=== PATIENT | male | born 1955 | race Caucasian/White ===

== ENCOUNTER 2018-07-19 11:08 | Observation (INO) | payer OTHER, SELFPAY ==
[2018-07-19] VITALS (9 sets, daily range): BP systolic 105–132; BP diastolic 58–78; PULSE 62–88; RESP 16–18; TEMP 36.6–36.9; O2SAT 95–99; BMI 27.0; BMI 25.4
--- NOTE | 2018-07-19 11:13 | NURSING ---
NO OLD EKGS
--- NOTE | 2018-07-19 13:26 | EKG12_ITS ---
Test Reason : NUMBNESS Blood Pressure : / mmHG Vent. Rate : 070 BPM Atrial Rate : 070 BPM P-R Int : 176 ms QRS Dur : 082 ms QT Int : 372 ms P-R-T Axes : 062 048 044 degrees QTc Int : 401 ms Sinus rhythm with marked sinus arrhythmia with occasional Premature ventricular complexes Nonspecific T wave abnormality Abnormal ECG Confirmed by SRI YEE, SMILEY ([id number]), senior editor BIANCA REDDY ([id number]) on 07/21/2018 1:58:19 PM Referred By: RUCHI Confirmed By:SMILEY FIERRO MD
--- NOTE | 2018-07-19 14:19 | RAD_ITS ---
STUDY: X-RAY CHEST REASON FOR EXAM: Male, 63 years old. Possible TIA. TECHNIQUE: Single AP portable view of the chest. COMPARISON: None. FINDINGS: The lungs are clear and expanded. Scattered calcified granulomas. There is no demonstrated pleural abnormality. Normal size heart. Normal mediastinum and doyle. Normal visualized pulmonary arteries. There is atherosclerotic tortuosity of the aortic arch and descending thoracic aorta. There are diffuse degenerative changes of the visualized thoracic spine. Normal visualized ribs, clavicles, and shoulders. There is no demonstrated abnormality of the visualized soft tissue structures of the upper abdomen. RAD/Chest 1 View IMPRESSION: No acute abnormality is seen. Electronically Signed: Kevon Kirk MD at 14:58 EST , Service support ,
--- NOTE | 2018-07-19 14:19 | CT_ITS ---
STUDY: CT BRAIN WITHOUT CONTRAST REASON FOR EXAM: Male, 63 years old. Numbness and tingling of the right arm. RADIATION DOSAGE (If Supplied By Facility): CTDIvol = ( 60.81 ) mGy, DLP = ( 1044.28 ) mGycm TECHNIQUE: Transaxial CT imaging of the brain was performed without administration of intravenous contrast material. Individualized dose optimization techniques were used for this CT. COMPARISON: None. FINDINGS: Normal soft tissue structures. Normal calvarium. Normal size ventricles and extra-axial spaces for the patient's age. Focal encephalomalacia in the vertex of the left frontal lobe measuring 1.3 cm x 1.7 cm. This may represent focal area of prior ischemic changes. Normal basal ganglia and thalami. Normal brainstem. Normal cerebellum. There is no intracranial hemorrhage. There are no findings of an acute ischemic infarction. There is a 1.2 cm polyp or retention cyst along the inferior medial portion of the right maxillary sinus. CT/Brain/Head without Contrast IMPRESSION: No acute abnormality is seen. Findings suggestive old ischemic changes in the vertex of the left frontal lobe. Electronically Signed: Kevon Kirk MD at 15:27 EST , Service support ,
[2018-07-19 14:29] LABS: Absolute Lymphocyte Count 1.85 X10^3/ul (0.83-4.51); Absolute Neutrophil Count 5.6 X10^3/uL (2.0-7.7); Basophil# 0.02 X10^3/uL; Basophil% 0.2 % (0-1); Eosinophil# 0.06 X10^3/uL; Eosinophils% 0.7 % (0-5); Hematocrit 41.7 % (40-54); Hemoglobin 14.1 g/dl (13.0-16.5); Lymphocyte # 1.85 X10^3/ul (4.0); Lymphocyte % 22.7 % (19-41); Mean Corp Hgb Conc 33.8 g/gl (32-36); Mean Corpuscular Hgb 29.1 pg (27.0-32.0); Mean Platelet Vol. 9.9 fl (6.2-12.0); Monocyte# 0.62 X10^3/uL; Monocyte% 7.6 % (0-10); Neutrophil # 5.59 X10^3/uL (2.7-7.7); Neutrophil % 68.7 % (47-70); Platelet Count 262 K/mm3 (150-450); RBC Distribution Width CV 15.5 % (11.6-14.6); RBC Distribution Width SD 49.1 fl (35.1-43.9); Red Blood Count 4.85 M/mm3 (4.6-6.2); White Blood Count 8.2 K/mm3 (4.4-11.0)
[2018-07-19 14:32] LABS: Anion Gap 6 (5-15); BUN 15 mg/dL (7-18); BUN/Creat Ratio 13.6 RATIO (10-20); Calcium,Total 9.5 mg/dL (8.5-10.1); Chloride 108 mmol/L (98-107); EST Glomerular Filtration Rate 71 mL/min (>60); Est Glom Filt Rate - Afr Amer 86 mL/min (>60); Estimated Creatinine Clearance 69.13 ml/min; Glucose 103 mg/dL (74-106); Sodium Level 140 mmol/L (136-145)
[2018-07-19 14:33] LABS: POSITIVE COUNT NO; POSITIVE DIFFERENTIAL NO; POSITIVE MORPHOLOGY NO
[2018-07-19 14:46] LABS: Bedside Glucose 118 mg/dL (70-110)
[2018-07-19 14:47] LABS: Partial Thromboplast Time 31.6 Seconds (24.1-36.2); Prothrombin Time (Protime)PT. 13.4 SECONDS (11.7-14.9)
[2018-07-19] MEDS: 0.9% Normal Saline 1,000 ML 50 ML IV (14:49)
--- NOTE | 2018-07-19 16:34 | NURSING ---
114 OBS TERELETSKY TIA
--- NOTE | 2018-07-19 17:18 | CT_ITS ---
STUDY: CTA NECK WITH CONTRAST REASON FOR EXAM: Male, 63 years old. TIA. RADIATION DOSAGE (If Supplied By Facility): CTDIvol = ( 23.81 ) mGy, DLP = ( 772.76 ) mGycm TECHNIQUE: CT angiography with multi-detector data acquisition was performed from the aortic arch to the skull base following intravenous administration of 100 ml of Isovue 370 contrast. MIP images were reconstructed from the axial data set. Post-processing of the angiographic images was performed, with multiplanar reformation and 3D reconstruction. Individualized dose optimization techniques were used for this CT. COMPARISON: None. FINDINGS: AORTIC ARCH: There is atherosclerotic calcific plaque formation of the aortic arch and great vessels arising from the aortic arch, without a hemodynamically significant stenosis. There is a bovine origin of the great vessels with a common origin of the brachiocephalic and left common carotid artery. Normal origin of the left subclavian artery. RIGHT CAROTID ARTERIES: Normal right common carotid artery (CCA). Normal right common carotid bulb. Normal origin of the right internal carotid (ICA) artery without a hemodynamically significant stenosis. There is mild tortuosity of the visualized cervical portion of the right internal carotid artery. Normal origin of the right external carotid artery (ECA). LEFT CAROTID ARTERIES: Normal left common carotid artery (CCA). Normal left common carotid bulb. Normal origin of the left internal carotid (ICA) artery without a hemodynamically significant stenosis. Normal visualized cervical portion of the left internal carotid artery. Normal origin of the left external carotid artery (ECA). VERTEBRAL ARTERIES: There is enhancement within the bilateral vertebral arteries with a small right vertebral artery, and a dominant left vertebral artery. CT/CTA Neck W/WO Contrast IMPRESSION: Normal bilateral cervical carotid and vertebral arteries. Electronically Signed: Karlo Ware DO at 19:16 EST Tel [phone], Service support ,
--- NOTE | 2018-07-19 17:18 | ECHOD_ITS ---
Reason For Study: TIA Procedure This was a 2D Doppler, Color Flow transthoracic echocardiogram. Exam performed portable in patient room. Left Ventricle Normal LV size. The estimated ejection fraction is 40 %. No regional wall motion abnormalities noted. Right Ventricle Normal RV size. Normal systolic function. Atria Normal left atrium. Normal right atrium. Patent foramen ovale. Mitral Valve Normal mitral valve. Mild (1+) eccentric mitral valve insufficiency. Tricuspid Valve Normal tricuspid valve. Mild tricuspid valve insufficiency. Aortic Valve Trisinus/trileaflet aortic valve. Pulmonic Valve The pulmonic valve is not well visualized. Great Vessels Mild to moderately dilated aortic root. The pulmonary artery is normal size. Normal inferior vena cava. Pericardium/Pleural No pericardial effusion. Medication Performed a rapid injection of agitated mix of 9 cc saline and 1cc air to assess for atrial septal defect. Positive bubble study. MMode/2D Measurements & Calculations LVIDd: 5.3 cm IVSd: 1.0 cm Ao root diam: 4.3 cm LVIDs: 3.8 cm LVPWd: 0.99 cm RVDd: 3.8 cm FS: 27.8 % LAV(MOD-bp): 65.0 ml LVAd ap4: 35.5 cm2 SV(MOD-sp4): 67.3 ml LAV(MOD-bp) Indexed: 32.8 ml/m2 EDV(MOD-sp4): 117.2 ml LAV(MOD-sp2): 63.5 ml EDV(sp4-el): 120.5 ml LAV(MOD-sp4): 60.1 ml LVAs ap4: 20.8 cm2 ESV(MOD-sp4): 49.9 ml ESV(sp4-el): 50.9 ml EF(MOD-sp4): 57.4 % EF(sp4-el): 57.8 % SV(sp4-el): 69.7 ml LA A4 area: 21.5 cm2 LA dimension(2D): 3.4 cm RA A4 area: 19.0 cm2 Time Measurements MV dec time: 0.18 sec Doppler Measurements & Calculations MV E max michael: 99.4 cm/sec Lat Peak E' Michael: 11.6 cm/sec Med Peak E' Michael: 8.3 cm/sec MV A max michael: 60.2 cm/sec E/E' lat: 8.6 E/E' med: 12.0 MV E/A: 1.6 Ao V2 max: 106.6 cm/sec LV V1 max: 83.7 cm/sec PA V2 max: 90.3 cm/sec Ao max P.6 mmHg LV V1 max P.8 mmHg PI end-d michael: 91.7 cm/sec TR max michael: 203.7 cm/sec TR max P.7 mmHg Interpretation Summary Normal LV size. The estimated ejection fraction is 40 %. Patent foramen ovale. Mild (1+) eccentric mitral valve insufficiency. Ordering Physician: Izaiah Beatty Referring Physician: ZAID BERGMAN Performed By: Shawna Harrell, PAUL, RVT
--- NOTE | 2018-07-19 17:18 | MRI_ITS ---
STUDY: MRI BRAIN WITHOUT CONTRAST REASON FOR EXAM: Male, 63 years old. Weakness and numbness. TECHNIQUE: Standardized multiplanar fat and water weighted pulse sequences were obtained. COMPARISON: [address] FINDINGS: There is mild cerebral atrophy with widening of the extra-axial spaces and ventricular dilatation. There is chronic increased signal within the bilateral frontal cortex consistent with previous ischemic change. There are a limited number of small white matter hyperintensities, distributed throughout the deep white matter tracts of the cerebral hemispheres, consistent with mild chronic white matter ischemic changes. There is no evidence for recent intracranial ischemia or other cause of cytotoxic edema on diffusion weighted imaging (DWI). Normal bilateral basal ganglia. Normal thalami. There is no extra-axial fluid accumulation. Normal flow voids within the major intracranial circulation suggesting patency by spin echo criteria. Normal sella turcica, pituitary gland, infundibular stalk, optic chiasm and hypothalamus. Normal tectal plate and pineal gland. Normal midbrain, brandee and medulla. Normal cerebellum. Normal basal cisterns. Normal bilateral temporal bones. Normal bilateral internal auditory canals. No demonstrated orbital abnormality, within the constraints of a routine brain study. Normal visualized paranasal sinuses. Normal calvarium and skull base. Normal visualized soft tissue structures. Normal visualized upper cervical spine. MRI/Brain without Contrast IMPRESSION: Previous ischemic change within the bilateral frontal cortex with otherwise no evidence of acute intracranial bleed, mass or ischemia. Electronically Signed: Pranav Ceballos DO at 20:45 EST , Service support ,
--- NOTE | 2018-07-19 17:18 | CT_ITS ---
STUDY: CTA OF THE BRAIN REASON FOR EXAM: Male, 63 years old. TIA. RADIATION DOSAGE (If Supplied By Facility): CTDIvol = ( 23.81 ) mGy, DLP = ( 772.76 ) mGycm TECHNIQUE: CT angiography was performed with a multi-detector CT scanner. Data acquisition was obtained from the skull base through the vertex following intravenous administration of ml of . MIP images were reconstructed from the axial data set. Post-processing of the angiographic images was performed, with multiplanar reformation and 3D reconstruction. Individualized dose optimization techniques were used for this CT. COMPARISON: None. FINDINGS: Normal bilateral petrous carotid arteries. Normal right cavernous carotid artery with a normal supraclinoid bifurcation. Normal left cavernous carotid artery with a normal supraclinoid bifurcation. Normal right A1 segments of the anterior cerebral artery. Normal left A1 segments of the anterior cerebral artery. Normal intact anterior communicating artery (ACOM). Normal bilateral A2 segments of the anterior cerebral arteries. Normal right M1 and M2 segments of the middle cerebral arteries, with a normal M1 bifurcation. Normal left M1 and M2 segments of the middle cerebral arteries, with a normal M1 bifurcation. There is non-visualization of the right posterior communicating artery (PCOM). Normal left posterior communicating artery (PCOM). There is a small atretic right vertebral artery with a dominant left vertebral artery. Normal basilar artery with a normal basilar bifurcation. The visualized bilateral superior cerebellar (SCA) arteries are normal. Normal P1, P2 and visualized P3 segments of the right posterior cerebral artery. There is minimal atresia of the P1 segment of the left posterior cerebral artery. The P2 and visualized P3 segments are unremarkable. There is no demonstrated aneurysm of the [place]. There is no demonstrated abnormality of the visualized brain. CT/CTA Head W/WO Contrast IMPRESSION: Minimal atrial region of the P1 segment of the left posterior cerebral artery. The [place] is otherwise unremarkable. Electronically Signed: Karlo Ware DO at 18:25 EST Tel [phone], Service support ,
--- NOTE | 2018-07-19 17:18 | MRI_ITS ---
STUDY: MRI CERVICAL SPINE WITHOUT CONTRAST REASON FOR EXAM: Male, 63 years old. Impingement, numbness and tingling in the right arm. TECHNIQUE: Standardized fat and water weighted pulse sequences were obtained in the sagittal and axial planes. COMPARISON: CTA cervical for July 2017 FINDINGS: Normal foramen magnum and brainstem-cervical cord junction. Normal craniovertebral junction. Normal anterior atlantoaxial articulation. Normal odontoid process. Normal cervical lordosis. Normal vertebral bodies and posterior osseous elements. C2-3: Disc desiccation with no evidence of spinal canal narrowing or foraminal narrowing. C3-4: Central disc protrusion with no significant spinal canal narrowing or foraminal narrowing. C4-5: Mild disc desiccation with no significant spinal canal narrowing or foraminal narrowing. C5-6: Mild decreased disc space with disc osteophyte complex and lateral uncovertebral joint arthropathy and mild right and moderate left foraminal narrowing. C6-7: Disc desiccation with mild decreased disc space and left paracentral disc protrusion without associated spinal canal narrowing or foraminal narrowing. C7-T1: Normal endplates. Normal disc height, signal and morphology. Normal central canal and intervertebral neural foramina. Normal cervical cord. Flow related enhancement of the right vertebral artery is present consistent with small artery given appearance on CTA neck for July 2017. Normal visualized soft tissue structures. MRI/Spine Cervical (Routine) IMPRESSION: 1. C5-C6 degenerative changes with mild right and moderate left foraminal narrowing, clinically correlate for C5-6 nerve radiculopathy. Electronically Signed: Pranav Ceballos DO at 21:22 EST , Service support ,
--- NOTE | 2018-07-19 17:50 | ED.DCSUM_ITS ---
- ER Visit Summary Date of Service: 07/19/18 Chief Complaint: Paresthesias and right hand weakness History of Present Illness: The patient is a 63 M who reports having an episode of right hand weakness, numbness, and tingling that started at 7 AM this morning. Symptoms lasted approximately an hour and resolved. He states he is able to move his arm at his elbow and shoulder but could not move his hand. He also noted some mild tongue numbness during the episode. Patient denies any past medical history. He does not take any medications. Physical Examination: Vital signs unremarkable. Patient is in no acute distress and is nontoxic appearing. Head and neck examination is normal. Heart is regular rate and rhythm. Palpable pulses are noted throughout. Lungs are clear with good air movement throughout. Abdomen is soft and nontender. Bowel sounds are noted. Extremity examination is unremarkable with full range of motion. Neurologic examination reveals no focal deficits. NIH score is 0. Test Results: CT head shows no acute abnormality. Findings are suggestive of old ischemic changes. EKG is sinus at 70 with a single PVC. No sign studies unremarkable. Troponin negative. Emergency Department Course and Treatment: Test results were discussed with patient and family at bedside. I spoke with hospitalist regarding admission for MRI and further evaluation. Treatment Plan: [] Disposition: Admit Impression: TIA This note was generated with [employer] dictation software. It may contain incorrect words, spelling, and punctuation that were not noted in review of the chart prior to signing ED Disposition - Plan for ED Patient: Disposition: Acute Care [facility]
--- NOTE | 2018-07-19 21:00 | HP.PCM_ITS ---
Problem List (1) Right hand weakness Status: Acute (2) Expressive aphasia Status: Acute History of Present Illness Date of Admission: 07/19/18 Chief Complaint: Right hand weakness, expressive aphasia The patient is a 63 year old M who was seen in the emergency room it was from [facility] today with a chief complaint of right hand weakness and a brief episode of expressive aphasia which occurred at approximately 7 AM today. Patient denied any visual disturbances, he denies any headache, he denies any focal motor weakness other than his right hand. The symptoms persisted for approximately 90 minutes with the right hand weakness being dominant, he states that initially before the right hand weakness started he had some difficulty forming words but this resolved quickly. Patient has no significant medical issues, he takes multiple [id number] supplements. Workup in the emergency room today included a CT which showed findings suggestive of old ischemic changes in the vertex of the left frontal lobe. Patient's laboratory was unremarkable. Patient's NIH score in the emergency room was 0. Patient will be placed and observation status on PCU, he will be placed on a baby aspirin a day, atorvastatin, he will be evaluated by PT, OT, and speech therapy, he will have an MRI of the brain performed, a CTA of the head and neck performed, an MRI of the cervical spine performed. Patient will undergo an echocardiogram. I will not have neurology see the patient at this time pending the results of these diagnostic tests. Past Medical History Allergies No Known Allergies Allergy (Verified 07/19/18 11:09) Home Medications: Ambulatory Orders Medication Instructions Recorded NK 07/19/18 Surgical History: no surgical history Psychiatric History: No pertinent psych hx Lives: Spouse/ Significant Other Smoking Status: Current every day smoker Tobacco Use: Cigars, Pipe Alcohol: None Drugs: None - *Family History Maternal History Items: Cancer - Gastrointestinal Paternal History Items: Heart Disease Review of Systems Constitutional: Denies: Anorexia, Chills, Fever, Night Sweats, Weakness, Weight Change, Fatigue Eyes: Denies: Cataracts, Conjunctivae Inflammation, Double vision, Drainage HEENT: Denies: Difficulty Swallowing, Dysphasia, Ear Pain, Eye Pain, Head Aches, Hearing Changes, Nasal bleeding, Nasal Congestion, Post Nasal Drip Cardiovascular: Denies: Chest Pain, Claudication, Chest Pressure, Chest Tightness, Edema, Heaviness, Orthopnea, Palpitations, Paroxysmal Noc. Dyspnea Respiratory: Denies: Cough, Hemoptysis, Pleuritic Pain, Shortness of Breath, Shortness of breath at rest, Shortness of breath upon exertion, Sputum production, Wheezing Gastrointestinal: Denies: Abdominal Pain, Constipation, Diarrhea, Hematemesis, Hematochezia, Nausea, Melena, Vomiting Genitourinary: Denies: Dysuria, Frequency, Hematuria, Hesitancy, Urgency Musculoskeletal: Denies: Back Pain, Foot Pain, Hand Pain, Joint Pain, Joint stiffness, Joint swelling, Joint Tenderness, Leg Pain Skin: Denies: Dryness, Pruritis, Rash Neurological: Reports: Change in Speech - Trouble forming words today briefly, Focal weakness - Right hand weakness as described in chief complaint. Denies: Blurred vision, Double vision, Slurred speech, Confusion, Difficulty swallowing, Headaches, Numbness, Tingling, Tremor, Seizures Psychiatric: Denies: Anxiety, Depression, Homicidal Ideations, Suicidal Ideations Endocrine: Denies: Change in Body Habitus, Heat/ Cold Intolerance, Polydipsia, Polyuria, Hx of Irradiation Hematologic/ Lymphatic: Denies: Adenopathy, Anemia, Easy Bruising, Easy Bleeding, Petechiae, Purpura VTE Information - Inpt Only VTE Present on Admission: No VTE Mechan Device Prophylaxis: None VTE Pharm Prophylaxis ordered?: Yes Patient Problems: Active and Suspected Problems Right hand weakness (Acute) Expressive aphasia (Acute) - Physical Exam General: Alert, Oriented x3, Cooperative, No apparent distress, Well developed, Well nourished HEENT: Atraumatic, PERRLA, EOMI, Normocephalic Oral: Moist Mucosa Neck: Supple, No JVD, Negative Carotid Bruits, No Nuchal Rigidity, Trachea Midline, Thyroid Normal Size and Texture Lungs: Clear to auscultation, Normal air movement, No rhonchi, No wheeze, No rales Cardiovascular: Regular rate, Regular Rhythm, Normal S1, Normal S2, No murmurs, No Ectopic Activity, PMI Normal, No rub noted, No Gallop Abdomen: Bowel Sounds Present, Soft, Non Tender, Non-Distended, No hernias noted Extremities: No clubbing, No cyanosis, No edema, Capillary Refill Less than 3 Seconds Skin: No rashes, No breakdown Musculoskeletal: No Tenderness to Palpation of Joints or Extremities, No Muscle Wasting Neurological: Cranial nerves II-XII grossly intact, Neuro grossly intact, Motor Exam 5/5 strength throughout, Muscle tone normal, Sensory exam intact to light touch and pain, Coordination normal Psych/Mental Status: Normal Affect, Appropriate, Alert and oriented to time, place, person, mood and affect Vital Signs Temp Pulse Resp BP Pulse Ox 98.4 F 75 16 114/58 L 97 07/19/18 18:14 07/19/18 18:14 07/19/18 18:14 07/19/18 18:14 07/19/18 18:14 Oxygen Delivery Method Room Air Weight: 80.6 kg Body Mass Index (BMI) 25.4 Finger Stick Blood Glucose 118 Laboratory Tests Past 24 Hrs 07/19/18 07/19/18 07/19/18 14:10 14:10 14:10 WBC 8.2 RBC 4.85 Hgb 14.1 Hct 41.7 MCV 86.0 MCH 29.1 MCHC 33.8 RDW 15.5 H RDW Differential 49.1 H Plt Count 262 MPV 9.9 Immature Gran % (Auto) 0.100 Neut % (Auto) 68.7 Lymph % (Auto) 22.7 [place] % (Auto) 7.6 Eos % (Auto) 0.7 Baso % (Auto) 0.2 Absolute Neuts (auto) 5.6 Absolute Lymphs (auto) 1.85 Total Counted Not Reportable PT 13.4 INR 1.0 APTT 31.6 Sodium 140 Potassium 4.0 Chloride 108 H Carbon Dioxide 26.0 Anion Gap 6 BUN 15 Creatinine 1.10 Estim Creat Clear Calc 69.13 Est GFR (MDRD) Af Amer 86 Est GFR (MDRD) Non-Af 71 BUN/Creatinine Ratio 13.6 Glucose 103 Calcium 9.5 Troponin I 07/19/18 14:10 WBC RBC Hgb Hct MCV MCH MCHC RDW RDW Differential Plt Count MPV Immature Gran % (Auto) Neut % (Auto) Lymph % (Auto) [place] % (Auto) Eos % (Auto) Baso % (Auto) Absolute Neuts (auto) Absolute Lymphs (auto) Total Counted PT INR APTT Sodium Potassium Chloride Carbon Dioxide Anion Gap BUN Creatinine Estim Creat Clear Calc Est GFR (MDRD) Af Amer Est GFR (MDRD) Non-Af BUN/Creatinine Ratio Glucose Calcium Troponin I < 0.015 POC Glucose 07/19/18 14:38 POC Glucose 118 H Assessment/Plan All Active Problems Right hand weakness (Acute) Expressive aphasia (Acute) #1 right handed focal motor weakness lasting approximately 90 minutes today- resolved at this time, patient will be placed in observation status on PCU, other diagnostic studies will be obtained-CTA of the head and neck, MRI of the brain, MRI of the cervical spine. PT, OT, speech therapy will see the patient in evaluation, patient will have an echocardiogram performed tomorrow, he was placed on a baby aspirin a day, he was placed on atorvastatin 80 mg nightly. Patient talked to me about the atorvastatin, he states he is taking niacin and red yeast rice at home, I explained to him that if he had either a TIA or a stroke, it is recommended that he take atorvastatin, he will have to decide at the time of discharge whether he wants to do this. NIH stroke scores will be monitored. #2 brief episode of expressive aphasia-etiology unclear, questionable TIA Code Visit OBSV E&M: 57323 Initial observation care L3
[2018-07-19] MEDS: Atorvastatin Calcium 80 MG Tablet PO (22:00)
[2018-07-19] MEDS: Aspirin 81 MG TAB.CHEW PO (22:00)
[2018-07-20 03:22] VITALS: PULSE 67
[2018-07-20 03:50] VITALS: BP 109/69; PULSE 67; RESP 16; TEMP 36.7; O2SAT 96
[2018-07-20 06:59] VITALS: PULSE 63
[2018-07-20 07:00] LABS: Cholesterol 210 mg/dL (200); High Density Lipoprotein 45 mg/dL; Triglycerides 75 mg/dL; Very Low Density Lipoprotein 15 mg/dL (5-40)
[2018-07-20 09:23] VITALS: BP 118/65; PULSE 70; RESP 16; TEMP 36.5; O2SAT 97
[2018-07-20] MEDS: Aspirin 81 MG TAB.CHEW PO (09:26)
[2018-07-20 10:59] VITALS: PULSE 74
--- NOTE | 2018-07-20 12:11 | CON.PCM_ITS ---
Reason for Consult Date of Consultation: 07/20/18 Reason for Consultation: RIGHT HAND WEAKNESS AND SLURRED SPEECH History of Present Illness: The patient is a 63 year old right handed white male presented yesterday after an episode of slurred speech, reports facial droop on the right, lasting about 6-8 hrs then resolved, feels normal now, no trigger. no med changes or recent illness, +pipe smoking and cigars, no etoh, no asa at home. family did not note gait abnormality. reports occasionally has headache, takes advil around 2x/yr. Past Medical History Allergies No Known Allergies Allergy (Verified 07/19/18 11:09) Home Medications: Ambulatory Orders Medication Instructions Recorded NK 07/19/18 Surgical History: no surgical history Psychiatric History: No pertinent psych hx Lives: Spouse/ Significant Other Smoking Status: Current every day smoker Tobacco Use: Cigars, Pipe Alcohol: None Drugs: None - *Family History Maternal History Items: Cancer - Gastrointestinal Paternal History Items: Heart Disease Review of Systems Constitutional: Denies: Chills, Fever, Weight Change HEENT: Denies: Head Aches, Sinus Congestion, Sinus Drainage Cardiovascular: Denies: Chest Pain, Palpitations Respiratory: Denies: Cough, Shortness of breath at rest, Sputum production Gastrointestinal: Denies: Abdominal Pain, Nausea, Vomiting Genitourinary: Denies: Dysuria Musculoskeletal: Denies: Joint Pain, Joint Tenderness Skin: Denies: Rash, Wounds Neurological: Denies: Numbness, Tingling, Focal weakness Psychiatric: Denies: Anxiety, Depression, Homicidal Ideations, Suicidal Ideations Hematologic/ Lymphatic: Denies: Easy Bruising, Easy Bleeding Patient Problems: Active and Suspected Problems Right hand weakness (Acute) Expressive aphasia (Acute) - Physical Exam General: Alert, Oriented x3, Cooperative HEENT: Atraumatic, PERRLA, EOMI, Normocephalic Neck: Supple, No JVD, Negative Carotid Bruits Lungs: Clear to auscultation, Normal air movement Cardiovascular: Regular rate, No murmurs Abdomen: Bowel Sounds Present, Soft, Non Tender Extremities: No edema, Capillary Refill Less than 3 Seconds Skin: No rashes, No breakdown Musculoskeletal: No Tenderness to Palpation of Joints or Extremities Neurological: Cranial nerves II-XII grossly intact Psych/Mental Status: Normal Affect, Appropriate Vital Signs Temp Pulse Resp BP Pulse Ox 36.5 C L 74 16 118/65 97 07/20/18 09:23 07/20/18 10:59 07/20/18 09:23 07/20/18 09:23 07/20/18 09:23 Oxygen Delivery Method Room Air Weight: 80.6 kg Body Mass Index (BMI) 25.4 Finger Stick Blood Glucose 118 Intake and Output for Last 24 Hours 07/18/18 07/19/18 07/20/18 23:59 23:59 23:59 Intake Total 854 / 854 Balance 854 / 854 Laboratory Tests Past 24 Hrs 07/19/18 07/19/18 07/19/18 14:10 14:10 14:10 WBC 8.2 RBC 4.85 Hgb 14.1 Hct 41.7 MCV 86.0 MCH 29.1 MCHC 33.8 RDW 15.5 H RDW Differential 49.1 H Plt Count 262 MPV 9.9 Immature Gran % (Auto) 0.100 Neut % (Auto) 68.7 Lymph % (Auto) 22.7 [place] % (Auto) 7.6 Eos % (Auto) 0.7 Baso % (Auto) 0.2 Absolute Neuts (auto) 5.6 Absolute Lymphs (auto) 1.85 Total Counted Not Reportable PT 13.4 INR 1.0 APTT 31.6 Sodium 140 Potassium 4.0 Chloride 108 H Carbon Dioxide 26.0 Anion Gap 6 BUN 15 Creatinine 1.10 Estim Creat Clear Calc 69.13 Est GFR (MDRD) Af Amer 86 Est GFR (MDRD) Non-Af 71 BUN/Creatinine Ratio 13.6 Glucose 103 Calcium 9.5 Troponin I Triglycerides Cholesterol LDL Cholesterol VLDL Cholesterol HDL Cholesterol 07/19/18 07/20/18 14:10 05:50 WBC RBC Hgb Hct MCV MCH MCHC RDW RDW Differential Plt Count MPV Immature Gran % (Auto) Neut % (Auto) Lymph % (Auto) [place] % (Auto) Eos % (Auto) Baso % (Auto) Absolute Neuts (auto) Absolute Lymphs (auto) Total Counted PT INR APTT Sodium Potassium Chloride Carbon Dioxide Anion Gap BUN Creatinine Estim Creat Clear Calc Est GFR (MDRD) Af Amer Est GFR (MDRD) Non-Af BUN/Creatinine Ratio Glucose Calcium Troponin I < 0.015 Triglycerides 75 Cholesterol 210 H LDL Cholesterol 150 H VLDL Cholesterol 15 HDL Cholesterol 45 POC Glucose 07/19/18 14:38 POC Glucose 118 H Assessment/Plan All Active Problems Right hand weakness (Acute) Expressive aphasia (Acute) TIA vs migraine equivalent -asa daily 81mg mri neg (reviewed) cta no stenosis (reviewed) agree with stenosis if sinus on tele can dc 30 day event monitor pfo: verified that this is small, rx as above
--- NOTE | 2018-07-20 13:03 | DCINST_ITS ---
- Discharge Diagnoses Current Active Problems: Current Active and Chronic Problems Right hand weakness (Acute) Expressive aphasia (Acute) You will use the following diet at home:: Cardiac Your food should be the consistency of: Regular Discharge Activity: Return to Normal Activity Weight Bearing Status: Full weight bearing Call your doctor if you observe: Fever of 101 or Higher, Shortness of breath, Dizziness, Fainting spells, Chest pain, Increased palpitations (irregular heartbeat), Uncontrolled pain Allergies/Adverse Reactions: Allergies No Known Allergies Allergy (Verified 07/19/18 11:09) Medications to take at Discharge Aspirin [Aspirin, Baby] 81 mg PO DAILY@0800 #90 tab.chew 07/20/18 Atorvastatin Calcium [Lipitor] 20 mg PO QHS #90 tablet 07/20/18 The following prescriptions were given: Aspirin [Aspirin, Baby] 81 mg PO DAILY@0800 #90 tab.chew Atorvastatin Calcium [Lipitor] 20 mg PO QHS #90 tablet Orders to be completed after discharge: 30-Day Event Recorder [[facility]] Location: None Selected Primary Care Physician: Guanakito Hawkins DO [Primary Care Provider] - Please follow up with your Primary Care Physician in: 1-2 WEEKS. Test Results: Test results from this visit will be discussed in further detail at your follow- up appointment, if applicable.
--- NOTE | 2018-07-20 15:15 | PCM.DC.SUM ---
Discharge Date and Diagnosis Date of Admission: 07/19/18 Date of Discharge: 07/20/18 - Primary Discharge Diagnosis Active and Suspected Problems #1 transient ischemic attack. #2 small patent arambula ovale. Hospital Course and Treatment Imaging Results: Clinical Impression(s) from Imaging Studies Brain CT 07/19/18 14:19 IMPRESSION: No acute abnormality is seen. Findings suggestive old ischemic changes in the vertex of the left frontal lobe. Electronically Signed: Kevon Kirk MD at 15:27 EST , Service support , Chest X-Ray 07/19/18 14:19 IMPRESSION: No acute abnormality is seen. Electronically Signed: Kevon Kirk MD at 14:58 EST , Service support , Brain MRI 07/19/18 17:18 IMPRESSION: Previous ischemic change within the bilateral frontal cortex with otherwise no evidence of acute intracranial bleed, mass or ischemia. Electronically Signed: Pranav Ceballos DO at 20:45 EST , Service support , Cervical Spine MRI 07/19/18 17:18 IMPRESSION: 1. C5-C6 degenerative changes with mild right and moderate left foraminal narrowing, clinically correlate for C5-6 nerve radiculopathy. Electronically Signed: Pranav Ceballos DO at 21:22 EST , Service support , Head CTA 07/19/18 17:18 IMPRESSION: Minimal atrial region of the P1 segment of the left posterior cerebral artery. The [place] is otherwise unremarkable. Electronically Signed: Karlo Ware DO at 18:25 EST Tel [phone], Service support , Neck CTA 07/19/18 17:18 IMPRESSION: Normal bilateral cervical carotid and vertebral arteries. Electronically Signed: Karlo Ware DO at 19:16 EST Tel [phone], Service support , Dr. Thompson, neurology. Operations: None Procedures: 2-D Echocardiogram, EKG Summary of Care Provided: Patient seen and examined on the day of discharge is likely to be stable to be discharged home. He has no more slurred speech and no more weakness of the right hand. Symptoms are completely resolved. Imaging study was unremarkable for acute stroke. His vital signs are stable. The patient is a 63 year old M admitted because of right hand weakness and expressive aphasia that lasted less than 24 hours which is consistent with transient ischemic attack. Patient underwent full stroke workup. Initial CT scan brain showed no acute findings. MRI brain showed no acute infarction or hemorrhage, no mass or ischemia. CTA of the neck with and without contrast revealed normal bilateral cervical carotid and vertebral arteries. CTA of the head revealed minimal atresia of the P1 segment of the left posterior cerebral artery, [place] otherwise unremarkable. 2D echocardiogram revealed normal LV size, ejection fraction was 40% and small patent foraminal ovale. After discussion between cardiology and neurology, decision was made that this PFO is small and needs no treatment at this time. Neurology consulted and recommended to continue aspirin and statins, recommended 30-day event monitor. Acute stroke ruled out. I ordered a 30-day event monitor but there was some issues about inserting the 30-day event monitor and cardiovascular staff will talk to Dr. Thompson about this. Patient discharged home in a stable medical condition, discharged on aspirin and statins, plan to have a 30-day event monitor attached to him, follow-up with PCP in 1-2 week. - Physical Exam General: Alert, Oriented x3, Cooperative, No apparent distress HEENT: Atraumatic, PERRLA, EOMI, Normocephalic Oral: Moist Mucosa, No Gingival or Mucosal Lesions/ Ulcerations Neck: Supple, No JVD, Negative Carotid Bruits, Trachea Midline, Thyroid Normal Size and Texture Lungs: Clear to auscultation, Normal air movement, No rhonchi, No wheeze, No rales Cardiovascular: Regular rate, Regular Rhythm, Normal S1, Normal S2, No murmurs, PMI Normal Abdomen: Bowel Sounds Present, Soft, Non Tender, Non-Distended, No Hepato-splenomegaly Extremities: No clubbing, No cyanosis, No edema Skin: No rashes, No breakdown Lymphatic: No Cervical, Supraclavicular, or Inguinal Adenopathy Neurological: Cranial nerves II-XII grossly intact, Motor Exam 5/5 strength throughout Psych/Mental Status: Normal Affect, Appropriate, Alert and oriented to time, place, person, mood and affect Vital Signs Temp Pulse Resp BP Pulse Ox 97.7 F L 74 16 118/65 97 07/20/18 09:23 07/20/18 10:59 07/20/18 09:23 07/20/18 09:23 07/20/18 09:23 Oxygen Delivery Method Room Air Weight: 177 lb 11.081 oz Body Mass Index (BMI) 25.4 Finger Stick Blood Glucose 118 Intake and Output for Last 24 Hours 07/18/18 07/19/18 07/20/18 23:59 23:59 23:59 Intake Total 1236 / 1236 Balance 1236 / 1236 Laboratory Tests Past 24 Hrs 07/20/18 05:50 Triglycerides 75 Cholesterol 210 H LDL Cholesterol 150 H VLDL Cholesterol 15 HDL Cholesterol 45 Discharge Activity: Return to Normal Activity Weight Bearing Status: Full weight bearing Call your doctor if you observe: Fever of 101 or Higher, Shortness of breath, Dizziness, Fainting spells, Chest pain, Increased palpitations (irregular heartbeat), Uncontrolled pain Home Medications: Medications to take at Discharge Aspirin [Aspirin, Baby] 81 mg PO DAILY@0800 #90 tab.chew 07/20/18 Atorvastatin Calcium [Lipitor] 20 mg PO QHS #90 tablet 07/20/18 Following Prescrptions Were Given to Patient: Aspirin [Aspirin, Baby] 81 mg PO DAILY@0800 #90 tab.chew Atorvastatin Calcium [Lipitor] 20 mg PO QHS #90 tablet Other Amb Orders: 30-Day Event Recorder [[facility]] Location: None Selected Primary Care Physician: Guanakito Hawkins DO [Primary Care Provider] - Please follow up with your Primary Care Physician in: 1-2 WEEKS. Disposition: Home Minutes spent on discharge:: 26 Patient Condition:: Stable Medical Necessity - Tobacco Use Smoking Status: Current every day smoker Tobacco Use: Cigars, Pipe Meaningful Use Info Meaningful Use Diagnoses (Choose all that apply): None applicable Code Visit OBSV E&M: 14300 Observation care discharge
== END 2018-07-20 13:02 | disposition home or self-care (01) ==
LOC: ED 15:43 → PCU 16:42
PROVIDERS: Admitting Provider Internal Medicine; Emergency Provider Emergency Medicine; Family Provider Family Medicine; PCP Family Medicine; Visit Provider Hospitalist
DX: G45.9 Transient cerebral ischemic attack, unspecified (principal); Q21.1 Atrial septal defect; F17.290 Nicotine dependence, other tobacco product, uncomplicated; R47.01 Aphasia; R47.81 Slurred speech; R29.810 Facial weakness
CPT/HCPCS: 36415; 70450; 70496; 70498; 70551; 71045; 72141; 80048; 80061; 82962; 84484; 85025; 85610; 85730; 93005; 93306; 97161; 99218; 99282; J7030; Q9967; A4216; G0378

== ENCOUNTER 2021-07-01 12:37 | Inpatient (IN) | payer MEDICARE, SELFPAY ==
[2021-07-01] VITALS (19 sets, daily range): BP systolic 96–140; BP diastolic 62–83; PULSE 68–107; RESP 18–32; TEMP 35.9–38.9; O2SAT 76–97; BMI 31.5; BMI 26.7
--- NOTE | 2021-07-01 12:45 | EKG12_ITS ---
Test Reason : SOB Blood Pressure : / mmHG Vent. Rate : 096 BPM Atrial Rate : 096 BPM P-R Int : 162 ms QRS Dur : 074 ms QT Int : 326 ms P-R-T Axes : 051 013 056 degrees QTc Int : 411 ms Normal sinus rhythm Normal ECG Confirmed by VINCENT YEE, VÍCTOR ([id number]), social media editor JACKSON CRUZ ([id number]) on 07/03/2021 9:40:21 AM Referred By: FITZ Confirmed By:VÍCTOR KAUR MD
--- NOTE | 2021-07-01 12:45 | RAD_ITS ---
STUDY: X-RAY CHEST REASON FOR EXAM: Male, 66 years old. Cough TECHNIQUE: Single AP portable view of the chest. COMPARISON: Comparison is made with prior study dated 07/19/2018. FINDINGS: EKG electrodes are seen. There now is evidence of bilateral pulmonary infiltrates worse in the left hemithorax. Follow-up is recommended. There is no demonstrated pleural abnormality. Normal size heart. Normal mediastinum and doyle. Normal visualized pulmonary arteries. There is atherosclerotic tortuosity of the aortic arch and descending thoracic aorta. There are diffuse degenerative changes of the visualized thoracic spine. Normal visualized ribs, clavicles, and shoulders. There is no demonstrated abnormality of the visualized soft tissue structures of the upper abdomen. RAD/Chest 1 View (Portable) IMPRESSION: Bilateral pulmonary infiltrates worse in the left hemithorax. Follow-up is recommended. Electronically Signed: Kevon Kirk MD at 13:38 EST , Service support ,
--- NOTE | 2021-07-01 13:04 | ED.VIS.DYS ---
HPI History of Present Illness Chief Complaint: Shortness of Breath Narrative Narrative: 58-year-old male with history of TIA, hyperlipidemia currently not taking any moderate medical therapy for antiplatelets or cholesterol stating that he takes herbal remedies from his physician. He states that he is thin the blood. Patient has been sick for about 7 days with a cough, fever, shortness of breath. He does express that he has chest pain sometimes with exertion. He also has body aches and chills. Patient does not have any sick contacts. He was not vaccinated for COVID-19. PFSH PFS Medical History TIA (transient ischemic attack) Home Medications NK 07/01/21 [History Last Taken Unknown] Allergy/AdvReac Type Severity Reaction Status Date / Time No Known Allergies Allergy Verified 07/01/21 12:57 Social History Smoking Status: Current every day smoker tobacco type: cigarettes ROS ROS ED Constitutional Constitutional ED: Reports chills and fever(s); Denies weight loss Eyes Eyes: Denies blurry vision or change in vision ENT ENT ED: Reports rhinorrhea and sore throat Cardiovascular Cardiovascular: Reports chest pain Respiratory/Chest Respiratory/Chest: Reports cough, dyspnea and dyspnea on exertion Gastrointestinal Gastrointestinal: Denies abdominal pain, nausea or vomiting Genitourinary Genitourinary ED: Denies dysuria or hematuria Musculoskeletal Musculoskeletal: Reports myalgias; Denies arthralgias or neck pain Integumentary Denies rash Neurologic Neurologic: Denies headache(s) or paresthesias EXAM Physical Exam Const Vital Signs: 07/01/21 12:37 07/01/21 12:39 07/01/21 12:40 Temperature 100.3 F H Temperature Source Temporal Pulse Rate 107 H Respiratory Rate 28 H Respiratory Effort Respiratory Pattern Blood Pressure 122/71 H Blood Pressure Mean 88 Pulse Ox 85 76 78 Oxygen Delivery Method Room Air Room Air Nasal Cannula Oxygen Flow Rate (L/min) 4.5 07/01/21 12:42 07/01/21 12:46 07/01/21 12:50 Temperature 102.0 F H Temperature Source Oral Pulse Rate 107 H Respiratory Rate 32 H Respiratory Effort Respiratory Pattern Blood Pressure 122/68 H Blood Pressure Mean 86 Pulse Ox 84 94 94 Oxygen Delivery Method Nasal Cannula Nasal Cannula Nasal Cannula Oxygen Flow Rate (L/min) 6 6 6 07/01/21 12:52 07/01/21 12:58 07/01/21 14:55 Temperature 102.0 F H 99.3 F H Temperature Source Oral Oral Pulse Rate 82 Respiratory Rate 20 H Respiratory Effort Short of Breath Respiratory Pattern Tachypnea Blood Pressure 128/72 H Blood Pressure Mean 90 Pulse Ox 96 92 Oxygen Delivery Method Nasal Cannula Nasal Cannula Nasal Cannula Oxygen Flow Rate (L/min) 6 6 07/01/21 16:35 Temperature Temperature Source Pulse Rate 75 Respiratory Rate 19 H Respiratory Effort Respiratory Pattern Blood Pressure 140/83 H Blood Pressure Mean 102 Pulse Ox 92 Oxygen Delivery Method Nasal Cannula Oxygen Flow Rate (L/min) 6 Positive well nourished General Appearance ED: NAD; Negative for pallor HEENT Reports moist mucous membranes atraumatic Eyes PERRL and EOMs intact bilaterally Neck no lymphadenopathy and supple Resp Effort and Inspection: labored; Negative for respiratory distress or tracheal deviation Auscultation: rales diffuse, rhonchi upper bilaterally and diminished lung sounds bilateral lower Cardio regular rhythm Rate: tachycardic Neuro oriented x3 and CN's II-XII intact bilaterally Sensorium / Orientation: alert Psych mental status grossly normal Thought Process: normal thought process Skin General Skin Exam: Negative for jaundice or pallor Lesions: no lesions Rashes: no rashes MDM MDM MDM Narrative Medical decision making narrative: Patient presenting with fever, tachycardia, tachypnea, and hypoxia. Sepsis work-up was initiated although patient has symptoms of COVID likely. I will withhold IV fluids currently. Patient is given dexamethasone 6 mg and Tylenol 1 g. EKG on my interpretation shows a sinus rhythm with a ventricular rate of 96 bpm without sign of ischemic change. Chest x-ray my interpretation shows bilateral pulmonary infiltrates with worse infiltrates noted on the left. Radiologist does agree. Patient's CBC shows no leukocytosis and he is lymphopenic. PT and INR normal. PTT is slightly prolonged at 39.7. Creatinine slightly elevated at 1.41 and his last creatinine was 1.10 in July 2018. Lactic acid 1.0. Urinalysis is still pending. CTA was performed which shows no pulmonary emboli but does show diffuse findings of groundglass mixed with chronic interstitial findings. Worse in the upper lobes with bullous formations. Patient's rapid COVID was negative. COVID PCR is pending. Given patient's oxygen demand at 6 L just resting in bed and maintaining sats of 92% he will need to be admitted to the hospital. Patient was discussed with the hospitalist. Impression: 1. Hypoxic respiratory failure 2. Presumed COVID-19 pneumonitis Lab Data Attestation: I reviewed the patient's lab results. Labs: Laboratory Results - last 24 hr 07/01/21 07/01/21 07/01/21 12:57 12:57 12:57 WBC 6.8 RBC 4.88 Hgb 13.8 Hct 39.8 L MCV 81.6 MCH 28.3 MCHC 34.7 RDW Std Deviation 44.4 H RDW Coeff of [place] 14.7 H Plt Count 245 MPV 9.7 Immature Gran % (Auto) 0.600 Neut % (Auto) 83.3 H Lymph % (Auto) 9.1 L [place] % (Auto) 6.9 Eos % (Auto) 0.0 Baso % (Auto) 0.1 Absolute Neuts (auto) 5.7 Absolute Lymphs (auto) 0.62 L Nucleated RBC % 0 PT 13.7 INR 1.1 APTT 39.7 H Sodium 135 L Potassium 4.1 Chloride 103 Carbon Dioxide 22.0 Anion Gap 10 BUN 28 H Creatinine 1.41 H Estim Creat Clear Calc 51.77 Est GFR (MDRD) Af Amer 64 Est GFR (MDRD) Non-Af 53 L BUN/Creatinine Ratio 19.9 Glucose 115 H Lactic Acid Calcium 8.7 Total Bilirubin 0.40 AST 82 H ALT 39 Alkaline Phosphatase 53 Troponin I High Sens 37 Total Protein 7.5 Albumin 3.0 L Globulin 4.5 H Albumin/Globulin Ratio 0.7 L 07/01/21 12:57 WBC RBC Hgb Hct MCV MCH MCHC RDW Std Deviation RDW Coeff of [place] Plt Count MPV Immature Gran % (Auto) Neut % (Auto) Lymph % (Auto) [place] % (Auto) Eos % (Auto) Baso % (Auto) Absolute Neuts (auto) Absolute Lymphs (auto) Nucleated RBC % PT INR APTT Sodium Potassium Chloride Carbon Dioxide Anion Gap BUN Creatinine Estim Creat Clear Calc Est GFR (MDRD) Af Amer Est GFR (MDRD) Non-Af BUN/Creatinine Ratio Glucose Lactic Acid 1.9 Calcium Total Bilirubin AST ALT Alkaline Phosphatase Troponin I High Sens Total Protein Albumin Globulin Albumin/Globulin Ratio Radiography Diagnostic Testing: Clinical Impression(s) from Imaging Studies Chest X-Ray 07/01/21 12:45 IMPRESSION: Bilateral pulmonary infiltrates worse in the left hemithorax. Follow-up is recommended. Electronically Signed: Kevon Kirk MD at 13:38 EST , Service support , Chest CTA 07/01/21 13:43 IMPRESSION: Diffuse areas of ground glass appearance involving both lungs superimposed on chronic interstitial fibrosis worse in the upper lobes with bullous formation. Electronically Signed: Kevon Kirk MD at 14:33 EST , Service support , Discharge Plan Triage Chief Complaint: Shortness of Breath ED Provider: Rigo Nieves Dx/Rx/DC Orders Prescriptions: No Action NK RF: 0 Primary Care Provider: Guanakito Hawkins
[2021-07-01 13:09] LABS: Absolute Lymphocyte Count 0.62 X10^3/uL (0.83-4.51); Absolute Neutrophil Count 5.7 X10^3/uL (2.0-7.7); Basophil# 0.01 X10^3/uL; Basophil% 0.1 % (0-1); Hematocrit 39.8 % (40-54); Hemoglobin 13.8 g/dL (13.0-16.5); Lymphocyte # 0.62 X10^3/ul (0.83-4.51); Lymphocyte % 9.1 % (19-41); Mean Corp Hgb Conc 34.7 g/dL (32-36); Mean Corpuscular Hgb 28.3 pg (27.0-32.0); Mean Corpuscular Volume 81.6 fL (80-94); Mean Platelet Vol. 9.7 fl (6.2-12.0); Monocyte# 0.47 X10^3/uL; Monocyte% 6.9 % (0-10); NRBC Flagged by Analyzer 0 % (0-5); Neutrophil % 83.3 % (47-70); Platelet Count 245 K/mm3 (150-450); RBC Distribution Width CV 14.7 % (11.6-14.6); RBC Distribution Width SD 44.4 fl (35.1-43.9); Red Blood Count 4.88 M/mm3 (4.6-6.2); White Blood Count 6.8 K/mm3 (4.4-11.0)
[2021-07-01] MEDS: dexAMETHasone 10 MG/ML Vial 6 MG IV (13:10)
[2021-07-01] MEDS: Acetaminophen 500 MG Tablet 1000 MG PO (13:10)
[2021-07-01 13:22] LABS: International Normalized Ratio 1.1; Prothrombin Time (Protime)PT. 13.7 SECONDS (11.7-14.9)
[2021-07-01 13:23] LABS: Partial Thromboplast Time 39.7 Seconds (24.1-36.2)
[2021-07-01 13:28] LABS: ALB/GLOB Ratio 0.7 RATIO (0.9-2.4); AST(SGOT) 82 U/L (15-37); Alanine Aminotransfer ALT/SGPT 39 U/L (16-61); Alkaline Phosphatase 53 U/L (45-117); Anion Gap 10 (5-15); BUN 28 mg/dL (7-18); BUN/Creat Ratio 19.9 RATIO (10-20); Calcium,Total 8.7 mg/dL (8.5-10.1); Chloride 103 mmol/L (98-107); Creatinine, Serum 1.41 mg/dL (0.70-1.30); EST Glomerular Filtration Rate 53 mL/min (>60); Est Glom Filt Rate - Afr Amer 64 mL/min (>60); Estimated Creatinine Clearance 51.77 ml/min; Globulin 4.5 g/dL (2.2-4.2); Glucose 115 mg/dL (74-106); Lactic Acid 1.9 mmol/L (0.4-1.9); Potassium 4.1 mmol/L (3.5-5.1); Protein, Total 7.5 g/dL (6.4-8.2); Sodium Level 135 mmol/L (136-145); Troponin-I HS 37 pg/mL (3.0-78.0)
--- NOTE | 2021-07-01 13:43 | CT_ITS ---
STUDY: CTA CHEST REASON FOR EXAM: Male, 66 years old. Hypoxic respiratory failure RADIATION DOSAGE (If Supplied By Facility): CTDIvol = ( 11.82 ) mGy, DLP = ( 514.39 ) mGycm TECHNIQUE: The examination was performed with the intravenous administration of IV 100mL Isovue-370. Post-processing of the angiographic images was performed, with multiplanar reformation and 3D reconstruction. Individualized dose optimization techniques were used for this CT. COMPARISON: Comparison is made with prior chest radiograph done earlier today. FINDINGS: Normal enhancement of the main pulmonary artery and right and left pulmonary arteries. Normal enhancement of the bilateral peripheral pulmonary arteries. There is no demonstrated pulmonary embolism. There is atherosclerotic calcification of the aortic arch with tortuosity. There is no demonstrated aortic dissection. There are calcifications of the coronary arteries. There are visualized mediastinal lymph nodes, which are within normal size limits, and with normal morphology. Normal hilar regions. Normal visualized trachea and bronchi. The lungs are well expanded. Findings in keeping with diffuse bilateral pulmonary scarring with bullous formation. This is worse in the upper lobes. Multiple areas of groundglass appearance are seen in both upper and lower lobes. There may be superimposed infiltrates on chronic interstitial scarring. Normal pleura. Normal chest wall structures. There are degenerative changes of thoracic spine. Bilateral renal cysts. Small hiatal hernia. CT/CTA Chest W/WO Contrast IMPRESSION: Diffuse areas of ground glass appearance involving both lungs superimposed on chronic interstitial fibrosis worse in the upper lobes with bullous formation. Electronically Signed: Kevon Kirk MD at 14:33 EST , Service support ,
--- NOTE | 2021-07-01 16:41 | PCM.HP.STD ---
HPI - General General Date of Admission: 07/01/21 Chief Complaint: Cough, fever, shortness of breath for 7 days HPI Narrative IVY HUBBARD, is a 66 M with multiple comorbidities as listed below came to ER for cough, fever, shortness of breath for about 7 days. Patient did not take any temperature at home. He has mild loss of appetite, loss of taste and smell and cough which is mainly dry for about 7 days. For the last 3 days he is having shortness of breath mainly on exertion. Denies chest pain, pressure or tightness. Rapid antigen negative. COVID-19 PCR ordered In ED, patient febrile, temperature 102 Fahrenheit, pulse ox 76% on room air currently 94% on 6 L of oxygen. I independently reviewed CTA shows no pulmonary embolism but diffuse groundglass pattern. There is chronic interstitial fibrosis with bullous formation versus in upper lobes. Labs reviewed. BUN/creatinine elevated 28/1.41. Glucose 115. D-dimer elevated, procalcitonin 0.32. CRP, BNP, CK, LDH and fibrinogen elevated. In ED patient had dexamethasone 6 mg IV 1 dose [facility] Medical History TIA (transient ischemic attack) Home Medications NK 07/01/21 [History Last Taken Unknown] Allergy/AdvReac Type Severity Reaction Status Date / Time No Known Allergies Allergy Verified 07/01/21 12:57 Social History Smoking Status: Former smoker ROS ROS Narrative Constitutional: Reports fatigue and weakness, fever with chills HEENT: Reports systems reviewed and no addt'l complaints, except as documented Respiratory/Chest: Denies chest pain. Gastrointestinal: Denies coffee ground emesis, hematemesis or vomiting. No diarrhea or constipation Genitourinary: Denies burning urination or new urinary tract symptoms Musculoskeletal: No joint pain and limited range of motion Neurologic: Denies seizure-like activity skin: No ulcer. No rash Endocrinology: Reports systems reviewed and no addt'l complaints, except as documented Hematologic/Lymphatic: Reports systems reviewed and no addt'l complaints, except as documented Rest 14 ROS are negative except as mentioned in HPI Vital Signs Vital Signs Vital Signs: 07/01/21 12:37 07/01/21 12:39 07/01/21 12:40 Temperature 100.3 F H Temperature Source Temporal Pulse Rate 107 H Respiratory Rate 28 H Respiratory Effort Respiratory Pattern Blood Pressure 122/71 H Blood Pressure Mean 88 Pulse Ox 85 76 78 Oxygen Delivery Method Room Air Room Air Nasal Cannula Oxygen Flow Rate (L/min) 4.5 07/01/21 12:42 07/01/21 12:46 07/01/21 12:50 Temperature 102.0 F H Temperature Source Oral Pulse Rate 107 H Respiratory Rate 32 H Respiratory Effort Respiratory Pattern Blood Pressure 122/68 H Blood Pressure Mean 86 Pulse Ox 84 94 94 Oxygen Delivery Method Nasal Cannula Nasal Cannula Nasal Cannula Oxygen Flow Rate (L/min) 6 6 6 07/01/21 12:52 07/01/21 12:58 07/01/21 14:55 Temperature 102.0 F H 99.3 F H Temperature Source Oral Oral Pulse Rate 82 Respiratory Rate 20 H Respiratory Effort Short of Breath Respiratory Pattern Tachypnea Blood Pressure 128/72 H Blood Pressure Mean 90 Pulse Ox 96 92 Oxygen Delivery Method Nasal Cannula Nasal Cannula Nasal Cannula Oxygen Flow Rate (L/min) 6 6 07/01/21 16:35 Temperature Temperature Source Pulse Rate 75 Respiratory Rate 19 H Respiratory Effort Respiratory Pattern Blood Pressure 140/83 H Blood Pressure Mean 102 Pulse Ox 92 Oxygen Delivery Method Nasal Cannula Oxygen Flow Rate (L/min) 6 Weight Weight: 220 lb Body Mass Index (BMI) 31.5 Physical Exam Narrative General: Alert, Oriented x3, Cooperative HEENT: Atraumatic, PERRLA, EOMI, Normocephalic Oral: No Gingival or Mucosal Lesions/ Ulcerations Neck: Supple, No JVD, Negative Carotid Bruits Lungs: Air entry diminished in bilateral lung bases. Bilateral coarse crepitation. Severe hypoxia. Mild tachypnea. Cardiovascular: Regular rate, Regular Rhythm, Normal S1, Normal S2, No murmurs Abdomen: Bowel Sounds Present, Soft, Non Tender, Non-Distended : No renal angle tenderness. No suprapubic tenderness. Extremities: No edema, Capillary Refill Less than 3 Seconds Skin: No rashes, No breakdown Musculoskeletal: No Tenderness to Palpation of Joints or Extremities Neurological: Cranial nerves II-XII grossly intact, DTR 2+/4 and Symmetrical, Neuro grossly intact Psych/Mental Status: Normal Affect, Appropriate. Results Lab / Micro Data Result Diagrams: 07/02/21 04:28 07/02/21 04:28 Labs: Laboratory Results - last 24 hr 07/01/21 12:57: WBC 6.8, RBC 4.88, Hgb 13.8, Hct 39.8 L, MCV 81.6, MCH 28.3, MCHC 34.7, RDW Std Deviation 44.4 H, RDW Coeff of Augustina 14.7 H, Plt Count 245, MPV 9.7, Immature Gran % (Auto) 0.600, Neut % (Auto) 83.3 H, Lymph % (Auto) 9.1 L, [place] % (Auto) 6.9, Eos % (Auto) 0.0, Baso % (Auto) 0.1, Absolute Neuts (auto) 5.7, Absolute Lymphs (auto) 0.62 L, Nucleated RBC % 0 07/01/21 12:57: PT 13.7, INR 1.1, APTT 39.7 H 07/01/21 12:57: Sodium 135 L, Potassium 4.1, Chloride 103, Carbon Dioxide 22.0, Anion Gap 10, BUN 28 H, Creatinine 1.41 H, Estim Creat Clear Calc 51.77, Est GFR (MDRD) Af Amer 64, Est GFR (MDRD) Non-Af 53 L, BUN/Creatinine Ratio 19.9, Glucose 115 H, Calcium 8.7, Total Bilirubin 0.40, AST 82 H, ALT 39, Alkaline Phosphatase 53, Troponin I High Sens 37, Total Protein 7.5, Albumin 3.0 L, Globulin 4.5 H, Albumin/Globulin Ratio 0.7 L 07/01/21 12:57: Lactic Acid 1.9 Micro: Microbiology 07/01/21 13:00 Nasal Secretion SARS-CoV-2 Antigen (Rapid) - Final Radiology Impression Chest X-Ray 07/01/21 12:45 IMPRESSION: Bilateral pulmonary infiltrates worse in the left hemithorax. Follow-up is recommended. Electronically Signed: Kevon Kirk MD at 13:38 EST , Service support , Chest CTA 07/01/21 13:43 IMPRESSION: Diffuse areas of ground glass appearance involving both lungs superimposed on chronic interstitial fibrosis worse in the upper lobes with bullous formation. Electronically Signed: Kevon Kirk MD at 14:33 EST , Service support , Assessment & Plan Assessment/Plan (1) Bilateral pneumonia: QUALIFIERS: Qualified Code(s): J18.9 - Pneumonia, unspecified organism PLAN: 1. Acute bilateral pneumonia most likely COVID-19 pneumonia: Patient is being admitted to [facility] floor. COVID-19 PCR is pending. The patient has normal WBC count, absolute lymphopenia, normal platelet count. D-dimer high 3.11. Fibrinogen 618, CK and LDH elevated. BNP 183. Troponin normal. Pneumonia work-up including urinary antigens, sputum culture and blood cultures ordered. If COVID-19 PCR negative will order respiratory panel. 2. Acute hypoxic respiratory failure most related to pneumonia: Oxygen therapy. Incentive spirometry, PEP and Mucinex D. 3. Chronic interstitial fibrosis with emphysematous changes/BULLAE, CT findings with high suspicion of COPD exacerbation: The patient denies history of COPD. Most probably he did not had PFT. Bronchodilator, DuoNeb every 4 hourly. Patient is a former smoker. 4. History of TIA with transient expressive aphasia lasted less than 24 hours in July 2018: Patient was admitted at that time. Symptoms resolved. MRI brain showed no acute infarction. Echo showed EF 40% small PFO and no treatment was needed after discussion with case resource manager and neurologist at that time. At that time patient was discharged on aspirin and statin but currently I do not see. Tomorrow AM. 5. DVT prophylaxis: Lovenox 30 subcu twice daily. D-dimer is high. Living will/advanced directive/end of life care: Patient does not have living will or advanced directive. After discussion of benefits/risks procedures involved with full code, DNR CC arrest and DNR CC, the patient opted for DNR CC arrest with no intubation Patient doesn't want artificial life support including intubation, tube feed, ventilator and/chest compression, central venous catheter, vasopressor and DC shock if needed Total time spent in [id number] encounter in discussion of advanced directive 16 minutes. Charges/Coding Visit Charges Inpatient E&M: 08551 Init Hosp L3 Procedures Hospitalists Procedures: 20404 Advncd Care Plan 30 Min
[2021-07-01 17:09] LABS: CPK Total, Creatine Kinase 441 U/L (39-308); LDH 670 U/L (87-241)
[2021-07-01 17:14] LABS: BNP,B-Type NATRIURETIC PEPTIDE 183.7 pg/mL (0-100)
[2021-07-01 17:22] LABS: Procalcitonin 0.32 ng/mL (0.00-0.09)
[2021-07-01 17:57] LABS: Fibrinogen 618 mg/dl (203-444)
[2021-07-01 18:06] LABS: D-Dimer Quantitative (DVT/PE) 3.11 FEU/ug/m (0.27-0.49)
[2021-07-01] MEDS: 0.9% Saline Lock 10 ML Syringe IV (20:58)
[2021-07-01] MEDS: guaiFENesin/D-Methorphan TAB.SR.12H 1 TABLET PO (20:59)
[2021-07-01] MEDS: Enoxaparin 30 MG/0.3 ML Syringe SC (20:59)
[2021-07-02] VITALS (22 sets, daily range): BP systolic 89–114; BP diastolic 57–76; PULSE 63–102; RESP 16–22; TEMP 36.2–36.8; O2SAT 91–96
--- NOTE | 2021-07-02 00:03 | PCS.PANDOC ---
PANDEMIC DOCUMENTATION INITIATED: Date: 01/28/2021 Time: 190 INITIATED @ 1800
--- NOTE | 2021-07-02 03:24 | NURSING ---
O2 SAT 86-87% ON 15L HIGH KYE - PT LAYING ON BACK. ASSISTED PT TO TURN ONTO R SIDE, COUGH & DEEP BREATHE - SAT 92%. EXPLAINED TO PT IMPORTANCE OF PRONING, PT STATES I DON'T THINK I CAN DO THAT RIGHT NOW. WILL MONITOR.
--- NOTE | 2021-07-02 06:01 | NURSING ---
Pt assisted up to side of bed to use urinal. O2 sat 85% on 15L high chris. Pt placed on airvo 45L, 21% O2. Pt with sat of 77%. RT notified. 45L O2/55% - sat 84%. , 45L/66% O2 - 89%.
[2021-07-02 06:24] LABS: Absolute Lymphocyte Count 0.66 X10^3/uL (0.83-4.51); Absolute Neutrophil Count 4.4 X10^3/uL (2.0-7.7); Basophil# 0.01 X10^3/uL; Basophil% 0.2 % (0-1); Hematocrit 39.4 % (40-54); Hemoglobin 13.3 g/dL (13.0-16.5); Lymphocyte # 0.66 X10^3/ul (0.83-4.51); Lymphocyte % 11.8 % (19-41); Mean Corp Hgb Conc 33.8 g/dL (32-36); Mean Corpuscular Hgb 27.8 pg (27.0-32.0); Mean Corpuscular Volume 82.4 fL (80-94); Mean Platelet Vol. 10.4 fl (6.2-12.0); Monocyte# 0.45 X10^3/uL; Monocyte% 8.1 % (0-10); NRBC Flagged by Analyzer 0 % (0-5); Neutrophil # 4.43 X10^3/uL (2.7-7.7); Neutrophil % 79.2 % (47-70); Platelet Count 262 K/mm3 (150-450); RBC Distribution Width CV 14.9 % (11.6-14.6); RBC Distribution Width SD 45.2 fl (35.1-43.9); Red Blood Count 4.78 M/mm3 (4.6-6.2); White Blood Count 5.6 K/mm3 (4.4-11.0)
[2021-07-02 06:35] LABS: Squamous Epithelial Cells - UA 0 SEEN /hpf (0-5); White Blood Cells 0 SEEN /hpf (0-5)
[2021-07-02 06:40] LABS: Color, Urine Yellow (Yellow); Glucose, Dipstick Normal (Normal); Ketone-Dipstick 5 mg/dl (Negative); Leukocyte Esterase-Dipstick Negative /ul (Negative); Nitrite-Dipstick Negative (Negative); Occult Blood-Urine 50 /ul (Negative); Protein-Dipstick 100 mg/dl (Negative); Urine Bilirubin Dipstick Negative (Negative); Urine Clarity Clear (Clear); Urine Urobilinogen Normal (Normal)
[2021-07-02 06:45] LABS: Red Blood Cells-Urine 0-5 SEEN /hpf (0-5)
[2021-07-02 06:46] LABS: Amorphous Sediment 1+; Bacteria 2+ /hpf (None Seen); Hyaline Cast 0-5 SEEN /lpf (0-5); Mucous, Urine 1+ /hpf (<or=2+)
[2021-07-02 06:47] LABS: ALB/GLOB Ratio 0.6 RATIO (0.9-2.4); AST(SGOT) 70 U/L (15-37); Alanine Aminotransfer ALT/SGPT 35 U/L (16-61); Albumin, Serum 2.6 g/dL (3.2-5.0); Alkaline Phosphatase 47 U/L (45-117); Anion Gap 9 (5-15); BUN 30 mg/dL (7-18); BUN/Creat Ratio 29.1 RATIO (10-20); Calcium,Total 8.4 mg/dL (8.5-10.1); Chloride 105 mmol/L (98-107); Creatinine, Serum 1.03 mg/dL (0.70-1.30); EST Glomerular Filtration Rate 76 mL/min (>60); Est Glom Filt Rate - Afr Amer 92 mL/min (>60); Estimated Creatinine Clearance 68.64 ml/min; Globulin 4.2 g/dL (2.2-4.2); Glucose 134 mg/dL (74-106); Potassium 4.3 mmol/L (3.5-5.1); Protein, Total 6.8 g/dL (6.4-8.2); Sodium Level 136 mmol/L (136-145)
[2021-07-02] MEDS: dexAMETHasone 4 MG Tablet 6 MG PO (09:50)
[2021-07-02] MEDS: guaiFENesin/D-Methorphan TAB.SR.12H 1 TABLET PO ×2 (09:50→21:02)
[2021-07-02] MEDS: Enoxaparin 30 MG/0.3 ML Syringe SC ×2 (09:50→21:00)
[2021-07-02] MEDS: 0.9% Saline Lock 10 ML Syringe IV (09:51)
--- NOTE | 2021-07-02 09:53 | CON.PCM.ID_ITS ---
Assessment & Plan Assessment/Plan (1) Hypoxia: (2) Suspected COVID-19 virus infection: PLAN: Given typical symptoms, imaging, new lymphopenia, and rapidly progressive hypoxia, high suspicion for covid despite negative Ag and pcr swab. Unvaccinated for covid, recommend vaccine after discharge. Sx since 06/24/21, isolate until 07/14. On dex and remdesivir. Will check covid IgM and IgG to try to prove diagnosis. Reviewed EUA and risks/benefits of baricitinib with him, he wants to think about it. He will be given information sheet about it and understands the time limited nature of starting it. CTA neg for PE, d-dimer 3.1, on lovenox 30mb bid. Will follow, thank you HPI Consult Data Date of Consult: 07/02/21 HPI Narrative HPI Narrative: IVY HUBBARD, is a 66 M who presented 07/01 with one week of progressive cough, dyspnea, fever, chills, headache, loss of taste/smell. Unvaccinated for covid. Came to ED, found to be febrile and hypoxic. Admitted on dex and remdesivir. Feeling a little better this AM, but now on airvo. Full ROS performed and neg except as noted above. [facility] Medical History TIA (transient ischemic attack) Home Medications NK 07/01/21 [History Last Taken Unknown] Allergy/AdvReac Type Severity Reaction Status Date / Time No Known Allergies Allergy Verified 07/01/21 12:57 Social History Smoking Status: Former smoker Physical Exam Const alert, oriented x3 and no apparent distress General Appearance: cooperative Exam Limitations: no limitations HEENT normocephalic and head/scalp atraumatic Eyes PERRL and EOMs intact bilaterally Neck supple and No nodes Resp Auscultation: diminished lung sounds Cardio regular rate and regular rhythm GI soft to palpation, non-tender and non-distended Extremity no clubbing, cyanosis or edema Skin no rashes or lesions noted Neuro CN's II-XII intact bilaterally Lab / Micro Data Result Diagrams: 07/02/21 04:28 07/02/21 04:28 Labs: Laboratory Results - last 24 hr 07/01/21 12:57: WBC 6.8, RBC 4.88, Hgb 13.8, Hct 39.8 L, MCV 81.6, MCH 28.3, MCHC 34.7, RDW Std Deviation 44.4 H, RDW Coeff of Augustina 14.7 H, Plt Count 245, MPV 9.7, Immature Gran % (Auto) 0.600, Neut % (Auto) 83.3 H, Lymph % (Auto) 9.1 L, [place] % (Auto) 6.9, Eos % (Auto) 0.0, Baso % (Auto) 0.1, Absolute Neuts (auto) 5.7, Absolute Lymphs (auto) 0.62 L, Nucleated RBC % 0 07/01/21 12:57: PT 13.7, INR 1.1, APTT 39.7 H 07/01/21 12:57: Sodium 135 L, Potassium 4.1, Chloride 103, Carbon Dioxide 22.0, Anion Gap 10, BUN 28 H, Creatinine 1.41 H, Estim Creat Clear Calc 51.77, Est GFR (MDRD) Af Amer 64, Est GFR (MDRD) Non-Af 53 L, BUN/Creatinine Ratio 19.9, Glucose 115 H, Calcium 8.7, Total Bilirubin 0.40, AST 82 H, ALT 39, Alkaline Phosphatase 53, Troponin I High Sens 37, Total Protein 7.5, Albumin 3.0 L, Globulin 4.5 H, Albumin/Globulin Ratio 0.7 L 07/01/21 12:57: Lactic Acid 1.9 07/01/21 12:57: Fibrinogen 618 H, D-Dimer Quant (PE/DVT) 3.11 H* 07/01/21 12:57: Lactate Dehydrogenase 670 H, Total Creatine Kinase 441 H, C- React Prot Ext Range 88.70 H 07/01/21 12:57: B-Natriuretic Peptide 183.7 H 07/01/21 12:57: Procalcitonin 0.32 H 07/01/21 23:30: COVID-19 (LAKEISHA) Not Detected 07/02/21 04:28: WBC 5.6, RBC 4.78, Hgb 13.3, Hct 39.4 L, MCV 82.4, MCH 27.8, MCHC 33.8, RDW Std Deviation 45.2 H, RDW Coeff of Augustina 14.9 H, Plt Count 262, MPV 10.4, Immature Gran % (Auto) 0.700, Neut % (Auto) 79.2 H, Lymph % (Auto) 11.8 L, [place] % (Auto) 8.1, Eos % (Auto) 0.0, Baso % (Auto) 0.2, Absolute Neuts (auto) 4.4, Absolute Lymphs (auto) 0.66 L, Nucleated RBC % 0 07/02/21 04:28: Sodium 136, Potassium 4.3, Chloride 105, Carbon Dioxide 22.0, Anion Gap 9, BUN 30 H, Creatinine 1.03, Estim Creat Clear Calc 68.64, Est GFR (MDRD) Af Amer 92, Est GFR (MDRD) Non-Af 76, BUN/Creatinine Ratio 29.1 H, Glucose 134 H, Calcium 8.4 L, Total Bilirubin 0.30, AST 70 H, ALT 35, Alkaline Phosphatase 47, Total Protein 6.8, Albumin 2.6 L, Globulin 4.2, Albumin/Globulin Ratio 0.6 L 07/02/21 06:00: Urine Color Yellow, Urine Clarity Clear, Urine pH 5.0, Ur Specific [place] 1.020, Urine Protein 100 H, Urine Glucose (UA) Normal, Urine Ketones 5 H, Urine Occult Blood 50 H, Urine Nitrite Negative, Urine Bilirubin Negative, Urine Urobilinogen Normal, Ur Leukocyte Esterase Negative, Urine RBC 0-5 SEEN, Urine WBC 0 SEEN, Ur Squamous Epith Cells 0 SEEN, Amorphous Sediment 1+, Urine Bacteria 2+, Hyaline Casts 0-5 SEEN, Urine Mucus 1+ Micro: Microbiology 07/02/21 06:00 Urine, Clean Catch Legionella Antigen - Final 07/02/21 06:00 Urine, Clean Catch Streptococcus pneumoniae Antigen (M - Final 07/01/21 13:00 Nasal Secretion SARS-CoV-2 Antigen (Rapid) - Final Radiology Impression Chest X-Ray 07/01/21 12:45 IMPRESSION: Bilateral pulmonary infiltrates worse in the left hemithorax. Follow-up is recommended. Electronically Signed: Kevon Kirk MD at 13:38 EST , Service support , Chest CTA 07/01/21 13:43 IMPRESSION: Diffuse areas of ground glass appearance involving both lungs superimposed on chronic interstitial fibrosis worse in the upper lobes with bullous formation. Electronically Signed: Kevon Kirk MD at 14:33 EST , Service support ,
--- NOTE | 2021-07-02 11:23 | CASEMGMT ---
GREG RUBIN Assessment: Face to Face with pt for initial transition planning/care coordination assessment. GREG RUBIN introduced self and role at [facility], pt voices understanding and consents to assessment. Pt is A/O x4 and answers all questions appropriately at this time. Pt sitting up in bed with airvo on in no distress. Care providers, pharmacy, and demographics verified/updated. Admitting Dx: COVID 19 PNA PCP: Shruthi Specialists: Pt denies. Preferred Pharmacy: [facility] Insurance: [facility] Aid Prescription Benefit: no LW/HPOA: Pt denies having a LW/DPOA and denies need for info regarding AD. LNOK: Alejandra Mendez, ; Peng Bartlett, son in law; Jose G Diaz, neighbor- Pt provided phone numbers to neighbor and son in law's work as he does not have a phone. They live close and could reach pt if needed. Living Arrangements: Pt lives with , dtr and son in law in a two story home with 6-7 steps to enter with a rail. Pt reports he is I in ADL's and denies concerns at home. Transportation: Pt hires local hazmat driver for transportation and denies concerns with this. DME/HHC/SNF: Pt has a cane that he does not use, denies previous HHC or SNF stays. Pt states no concerns with going home at time of dc. Pt states he feels his strength is good at this time. He is aware to notify GREG RUBIN if he feels this is changing. Pt states no further concerns/needs. CM to follow. Advised pt to ask CM if any further question/concerns/needs arise, voices understanding. Pt first tested positive for COVID at [facility]. Pt family members who live with him have not been tested for COVID. He states he can quarantine from them by using separate bedrooms and bathrooms. Pt has family who can provide groceries and supplies while in quarantine. Provided pt with a local in network list of DME companies should pt be dc'd on O2, pt denies preference. Pt is aware of cost for self pay and this should not be a problem for him. Pt states he will need to borrow a generator should he need O2 and he has the means to do this. Pt Goal: Home Plan: Home
--- NOTE | 2021-07-02 12:34 | PN.HOSP_ITS ---
Subjective Subjective On Airvo. Sats drop down to 80s with minimal ambulation. Objective Data Objective Data Vital Signs: Vital Signs Temp Pulse Resp BP Pulse Ox 36.6 C 95 20 H 102/61 92 07/02/21 09:49 07/02/21 10:55 07/02/21 10:55 07/02/21 09:49 07/02/21 10:55 Oxygen Flow Rate (L/min) 45 Oxygen Delivery Method Airvo Weight: 82.1 kg Body Mass Index (BMI) 26.7 Intake & Output: Intake and Output for Last 24 Hours 06/30/21 07/01/21 07/02/21 23:59 23:59 23:59 Intake Total 350 / 350 250 / 250 Output Total 200 / 200 300 / 300 Balance 150 / 150 -50 / -50 Lab / Micro Data Result Diagrams: 07/02/21 04:28 07/02/21 04:28 Labs: Laboratory Results - last 24 hr 07/01/21 12:57: WBC 6.8, RBC 4.88, Hgb 13.8, Hct 39.8 L, MCV 81.6, MCH 28.3, MCHC 34.7, RDW Std Deviation 44.4 H, RDW Coeff of Augustina 14.7 H, Plt Count 245, MPV 9.7, Immature Gran % (Auto) 0.600, Neut % (Auto) 83.3 H, Lymph % (Auto) 9.1 L, [place] % (Auto) 6.9, Eos % (Auto) 0.0, Baso % (Auto) 0.1, Absolute Neuts (auto) 5.7, Absolute Lymphs (auto) 0.62 L, Nucleated RBC % 0 07/01/21 12:57: PT 13.7, INR 1.1, APTT 39.7 H 07/01/21 12:57: Sodium 135 L, Potassium 4.1, Chloride 103, Carbon Dioxide 22.0, Anion Gap 10, BUN 28 H, Creatinine 1.41 H, Estim Creat Clear Calc 51.77, Est GFR (MDRD) Af Amer 64, Est GFR (MDRD) Non-Af 53 L, BUN/Creatinine Ratio 19.9, Glucose 115 H, Calcium 8.7, Total Bilirubin 0.40, AST 82 H, ALT 39, Alkaline Phosphatase 53, Troponin I High Sens 37, Total Protein 7.5, Albumin 3.0 L, Globulin 4.5 H, Albumin/Globulin Ratio 0.7 L 07/01/21 12:57: Lactic Acid 1.9 07/01/21 12:57: Fibrinogen 618 H, D-Dimer Quant (PE/DVT) 3.11 H* 07/01/21 12:57: Lactate Dehydrogenase 670 H, Total Creatine Kinase 441 H, C- React Prot Ext Range 88.70 H 07/01/21 12:57: B-Natriuretic Peptide 183.7 H 07/01/21 12:57: Procalcitonin 0.32 H 07/01/21 23:30: COVID-19 (LAKEISHA) Not Detected 07/02/21 04:28: WBC 5.6, RBC 4.78, Hgb 13.3, Hct 39.4 L, MCV 82.4, MCH 27.8, MCHC 33.8, RDW Std Deviation 45.2 H, RDW Coeff of Augustina 14.9 H, Plt Count 262, MPV 10.4, Immature Gran % (Auto) 0.700, Neut % (Auto) 79.2 H, Lymph % (Auto) 11.8 L, [place] % (Auto) 8.1, Eos % (Auto) 0.0, Baso % (Auto) 0.2, Absolute Neuts (auto) 4. 4, Absolute Lymphs (auto) 0.66 L, Nucleated RBC % 0 07/02/21 04:28: Sodium 136, Potassium 4.3, Chloride 105, Carbon Dioxide 22.0, Anion Gap 9, BUN 30 H, Creatinine 1.03, Estim Creat Clear Calc 68.64, Est GFR (MDRD) Af Amer 92, Est GFR (MDRD) Non-Af 76, BUN/Creatinine Ratio 29.1 H, Glucose 134 H, Calcium 8.4 L, Total Bilirubin 0.30, AST 70 H, ALT 35, Alkaline Phosphatase 47, Total Protein 6.8, Albumin 2.6 L, Globulin 4.2, Albumin/Globulin Ratio 0.6 L 07/02/21 06:00: Urine Color Yellow, Urine Clarity Clear, Urine pH 5.0, Ur Specific [place] 1.020, Urine Protein 100 H, Urine Glucose (UA) Normal, Urine Ketones 5 H, Urine Occult Blood 50 H, Urine Nitrite Negative, Urine Bilirubin Negative, Urine Urobilinogen Normal, Ur Leukocyte Esterase Negative, Urine RBC 0-5 SEEN, Urine WBC 0 SEEN, Ur Squamous Epith Cells 0 SEEN, Amorphous Sediment 1+, Urine Bacteria 2+, Hyaline Casts 0-5 SEEN, Urine Mucus 1+ Micro: Microbiology 07/02/21 06:00 Urine, Clean Catch Legionella Antigen - Final 07/02/21 06:00 Urine, Clean Catch Streptococcus pneumoniae Antigen (M - Final 07/01/21 13:00 Nasal Secretion SARS-CoV-2 Antigen (Rapid) - Final Radiography Diagnostic Testing: Radiology Impression Chest X-Ray 07/01/21 12:45 IMPRESSION: Bilateral pulmonary infiltrates worse in the left hemithorax. Follow-up is recommended. Electronically Signed: Kevon Kirk MD at 13:38 EST , Service support , Chest CTA 07/01/21 13:43 IMPRESSION: Diffuse areas of ground glass appearance involving both lungs superimposed on chronic interstitial fibrosis worse in the upper lobes with bullous formation. Electronically Signed: Kevon Kirk MD at 14:33 EST , Service support , Physical Exam Const alert Constitutional Narrative: tachypneic. on commode. Resp normal respiratory effort, no retractions, no use of accessory muscles and clear to auscultation bilaterally Cardio regular rate, regular rhythm, S1 normal heart sound and S2 normal heart sound GI normal to inspection, nondistended, normoactive bowel sounds, soft to palpation, non-tender and non-distended Skin no rashes or lesions noted Assessment & Plan Assessment/Plan (1) Suspected COVID-19 virus infection: (2) Hypoxia: PLAN: 1. acute hypoxic respiratory failure 2/2 suspected covid 19 and pulmonary fibrosis/COPD on Airvo. Continue IS wean oxygen as able 2. suspected COVID 19 rapid and PCR negative Antibodies ordered to help verify unvaccinated onset /10 dexamethasone and remdesivir pt to contemplate baricitinib 3. VTE prophylaxis: LMWH Charges/Coding Visit Charges Inpatient E&M: 01008 Subs Hosp L2
[2021-07-02] MEDS: Acetaminophen 325 MG Tablet 650 MG PO (21:02)
[2021-07-03] VITALS (17 sets, daily range): BP systolic 103–112; BP diastolic 62–70; PULSE 56–81; RESP 18–24; TEMP 36.1–36.7; O2SAT 87–97
[2021-07-03 05:40] LABS: Absolute Lymphocyte Count 0.78 X10^3/uL (0.83-4.51); Absolute Neutrophil Count 7.1 X10^3/uL (2.0-7.7); Hematocrit 37.9 % (40-54); Hemoglobin 13.1 g/dL (13.0-16.5); Lymphocyte # 0.78 X10^3/ul (0.83-4.51); Lymphocyte % 9.1 % (19-41); Mean Corp Hgb Conc 34.6 g/dL (32-36); Mean Corpuscular Hgb 28.4 pg (27.0-32.0); Mean Platelet Vol. 9.8 fl (6.2-12.0); Monocyte# 0.63 X10^3/uL; Monocyte% 7.3 % (0-10); NRBC Flagged by Analyzer 0 % (0-5); Neutrophil # 7.14 X10^3/uL (2.7-7.7); Neutrophil % 82.9 % (47-70); Platelet Count 282 K/mm3 (150-450); RBC Distribution Width CV 15.1 % (11.6-14.6); RBC Distribution Width SD 45.3 fl (35.1-43.9); Red Blood Count 4.62 M/mm3 (4.6-6.2); White Blood Count 8.6 K/mm3 (4.4-11.0)
[2021-07-03 06:08] LABS: ALB/GLOB Ratio 0.6 RATIO (0.9-2.4); AST(SGOT) 64 U/L (15-37); Alanine Aminotransfer ALT/SGPT 38 U/L (16-61); Albumin, Serum 2.5 g/dL (3.2-5.0); Alkaline Phosphatase 50 U/L (45-117); Anion Gap 9 (5-15); BUN 42 mg/dL (7-18); BUN/Creat Ratio 39.6 RATIO (10-20); Calcium,Total 8.5 mg/dL (8.5-10.1); Chloride 107 mmol/L (98-107); Creatinine, Serum 1.06 mg/dL (0.70-1.30); EST Glomerular Filtration Rate 74 mL/min (>60); Est Glom Filt Rate - Afr Amer 89 mL/min (>60); Globulin 4.1 g/dL (2.2-4.2); Glucose 149 mg/dL (74-106); Potassium 4.2 mmol/L (3.5-5.1); Protein, Total 6.6 g/dL (6.4-8.2); Sodium Level 136 mmol/L (136-145)
[2021-07-03] MEDS: Acetaminophen 325 MG Tablet 650 MG PO ×2 (06:37→18:15)
[2021-07-03] MEDS: dexAMETHasone 4 MG Tablet 6 MG PO (09:02)
[2021-07-03] MEDS: guaiFENesin/D-Methorphan TAB.SR.12H 1 TABLET PO ×2 (09:02→22:57)
[2021-07-03] MEDS: Enoxaparin 30 MG/0.3 ML Syringe SC ×2 (09:02→22:57)
[2021-07-03] MEDS: 0.9% Saline Lock 10 ML Syringe IV ×2 (09:03→22:57)
--- NOTE | 2021-07-03 13:14 | PCM.PN.HOSP ---
Subjective Subjective Tolerating Airvo. Gets up and ambulates short distances and pulse ox drops to 91%. Objective Data Objective Data Vital Signs: Vital Signs Temp Pulse Resp BP Pulse Ox 36.1 C L 64 20 H 103/62 95 07/03/21 09:01 07/03/21 09:01 07/03/21 09:01 07/03/21 09:01 07/03/21 09:01 Oxygen Flow Rate (L/min) 45 Oxygen Delivery Method Airvo Weight: 82.1 kg Body Mass Index (BMI) 26.7 Intake & Output: Intake and Output for Last 24 Hours 07/01/21 07/02/21 07/03/21 23:59 23:59 23:59 Intake Total 350 / 350 850 / 850 Output Total 200 / 200 300 / 600 600 / 600 Balance 150 / 150 550 / 250 -600 / -600 Lab / Micro Data Result Diagrams: 07/03/21 04:32 07/03/21 04:32 Labs: Laboratory Results - last 24 hr 07/01/21 12:57: SARS-CoV-2 IgG Ab 0.28 07/03/21 04:32: WBC 8.6, RBC 4.62, Hgb 13.1, Hct 37.9 L, MCV 82.0, MCH 28.4, MCHC 34.6, RDW Std Deviation 45.3 H, RDW Coeff of [place]ina 15.1 H, Plt Count 282, MPV 9.8, Immature Gran % (Auto) 0.700, Neut % (Auto) 82.9 H, Lymph % (Auto) 9.1 L, [place] % (Auto) 7.3, Eos % (Auto) 0.0, Baso % (Auto) 0.0, Absolute Neuts (auto) 7.1, Absolute Lymphs (auto) 0.78 L, Nucleated RBC % 0 07/03/21 04:32: Sodium 136, Potassium 4.2, Chloride 107, Carbon Dioxide 20.0 L, Anion Gap 9, BUN 42 H, Creatinine 1.06, Estim Creat Clear Calc 66.70, Est GFR (MDRD) Af Amer 89, Est GFR (MDRD) Non-Af 74, BUN/Creatinine Ratio 39.6 H, Glucose 149 H, Calcium 8.5, Total Bilirubin 0.40, AST 64 H, ALT 38, Alkaline Phosphatase 50, Total Protein 6.6, Albumin 2.5 L, Globulin 4.1, Albumin/Globulin Ratio 0.6 L Micro: Microbiology 07/01/21 12:57 Blood Culture (Wb) - Anticubital Right Blood Culture - Preliminary No growth in 48 hours. 07/01/21 13:31 Blood Culture (Wb) - Anticubital Left Blood Culture - Preliminary No growth in 48 hours. 07/02/21 06:00 Urine, Random Urine Culture - Final Presumptive E. coli 07/02/21 06:00 Urine, Clean Catch Legionella Antigen - Final 07/02/21 06:00 Urine, Clean Catch Streptococcus pneumoniae Antigen (M - Final 07/01/21 13:00 Nasal Secretion SARS-CoV-2 Antigen (Rapid) - Final Physical Exam Const alert Constitutional Narrative: on Airvo. Reading newspaper. Resp Resp Narrative: bibasilar crackles. Cardio regular rate, regular rhythm, S1 normal heart sound and S2 normal heart sound GI normal to inspection, nondistended, normoactive bowel sounds, soft to palpation, non-tender and non-distended Assessment & Plan Assessment/Plan (1) Bilateral pneumonia: QUALIFIERS: Qualified Code(s): J18.9 - Pneumonia, unspecified organism (2) Suspected COVID-19 virus infection: PLAN: 1. acute hypoxic respiratory failure 2/2 suspected covid 19 and pulmonary fibrosis/COPD on Airvo. Continue IS wean oxygen as able 2. suspected COVID 19 rapid and PCR negative Antibodies ordered to help verify unvaccinated onset 06/24 dexamethasone Patient declining remdesivir at this time as he is concerned about kidney failure. Explained to him that we would be monitoring his kidney function while he was here there is any evidence of any kidney function that we will discontinue that. He wishes to hold off on that. pt to contemplate baricitinib 3. VTE prophylaxis: LMWH Charges/Coding Visit Charges Inpatient E&M: 79153 Subs Hosp L2
--- NOTE | 2021-07-03 13:23 | PCM.PN.ID ---
Physical Exam Narrative Feeling better, on airvo, no fever Const alert General Appearance: cooperative Resp normal air movement and clear to auscultation bilaterally Cardio regular rate and regular rhythm GI soft to palpation, non-tender and non-distended Skin no rashes or lesions noted ID ID: Route of nutrition/ use of supplements: [] Nutritional Intake: [] IV Site: [] Arambula Catheter: [] Assessment & Plan Assessment/Plan (1) Hypoxia: (2) Suspected COVID-19 virus infection: PLAN: Given typical symptoms, imaging, new lymphopenia, and rapidly progressive hypoxia, high suspicion for covid despite negative Ag and pcr swab. Unvaccinated for covid, recommend vaccine after discharge. Sx since 06/24/21, isolate until 07/14. On dex and remdesivir. Checking covid IgM to try to prove diagnosis. He is not interested in baricitinib. CTA neg for PE, d-dimer 3.1, on lovenox 30mb bid. Will follow
[2021-07-03 18:13] LABS: SAR-COV-2 IGM ANTIBODY Negative (Negative)
[2021-07-04] VITALS (28 sets, daily range): BP systolic 103–123; BP diastolic 64–73; PULSE 54–74; RESP 16–22; TEMP 36–36.6; O2SAT 15–97
[2021-07-04 06:39] LABS: Absolute Lymphocyte Count 0.86 X10^3/uL (0.83-4.51); Absolute Neutrophil Count 10.2 X10^3/uL (2.0-7.7); Basophil# 0.01 X10^3/uL; Basophil% 0.1 % (0-1); Hematocrit 38.4 % (40-54); Hemoglobin 13.2 g/dL (13.0-16.5); Lymphocyte # 0.86 X10^3/ul (0.83-4.51); Lymphocyte % 7.1 % (19-41); Mean Corp Hgb Conc 34.4 g/dL (32-36); Mean Corpuscular Hgb 28.6 pg (27.0-32.0); Mean Corpuscular Volume 83.1 fL (80-94); Mean Platelet Vol. 10.9 fl (6.2-12.0); Monocyte# 0.88 X10^3/uL; Monocyte% 7.3 % (0-10); NRBC Flagged by Analyzer 0 % (0-5); Neutrophil # 10.21 X10^3/uL (2.7-7.7); Neutrophil % 84.9 % (47-70); POSITIVE MORPHOLOGY YES; Platelet Count 324 K/mm3 (150-450); RBC Distribution Width CV 15.3 % (11.6-14.6); RBC Distribution Width SD 46.5 fl (35.1-43.9); Red Blood Count 4.62 M/mm3 (4.6-6.2)
[2021-07-04 06:45] LABS: Differential Indicated SCAN CRITERIA MET
[2021-07-04 07:07] LABS: ALB/GLOB Ratio 0.6 RATIO (0.9-2.4); AST(SGOT) 58 U/L (15-37); Alanine Aminotransfer ALT/SGPT 36 U/L (16-61); Albumin, Serum 2.5 g/dL (3.2-5.0); Alkaline Phosphatase 51 U/L (45-117); Anion Gap 8 (5-15); BUN 44 mg/dL (7-18); BUN/Creat Ratio 47.8 RATIO (10-20); Calcium,Total 8.8 mg/dL (8.5-10.1); Chloride 108 mmol/L (98-107); Creatinine, Serum 0.92 mg/dL (0.70-1.30); EST Glomerular Filtration Rate 87 mL/min (>60); Est Glom Filt Rate - Afr Amer 105 mL/min (>60); Estimated Creatinine Clearance 76.85 ml/min; Globulin 4.1 g/dL (2.2-4.2); Glucose 132 mg/dL (74-106); Potassium 4.5 mmol/L (3.5-5.1); Protein, Total 6.6 g/dL (6.4-8.2); Sodium Level 136 mmol/L (136-145)
[2021-07-04 07:17] LABS: Atypical Lymphocyte 1+ %; Differential Comment SCANNED
[2021-07-04] MEDS: Acetaminophen 325 MG Tablet 650 MG PO ×3 (08:11→22:10)
[2021-07-04] MEDS: dexAMETHasone 4 MG Tablet 6 MG PO (08:11)
[2021-07-04] MEDS: guaiFENesin/D-Methorphan TAB.SR.12H 1 TABLET PO ×2 (08:12→22:10)
[2021-07-04] MEDS: Enoxaparin 30 MG/0.3 ML Syringe SC ×2 (08:12→22:11)
--- NOTE | 2021-07-04 12:53 | PN.HOSP_ITS ---
Subjective Subjective No new issues overnight. Tolerating Airvo Objective Data Objective Data Vital Signs: Vital Signs Temp Pulse Resp BP Pulse Ox 36.6 C 74 18 103/64 91 07/04/21 11:19 07/04/21 12:46 07/04/21 11:19 07/04/21 11:19 07/04/21 12:01 Oxygen Flow Rate (L/min) 86 Oxygen Delivery Method High Flow Weight: 82.1 kg Body Mass Index (BMI) 26.7 Intake & Output: Intake and Output for Last 24 Hours 07/02/21 07/03/21 07/04/21 23:59 23:59 23:59 Intake Total 850 / 850 600 / 600 500 / 500 Output Total 300 / 600 1000 / 1300 1050 / 1050 Balance 550 / 250 -400 / -700 -550 / -550 Lab / Micro Data Result Diagrams: 07/04/21 04:27 07/04/21 04:27 Labs: Laboratory Results - last 24 hr 07/02/21 11:08: SARS-CoV-2 IgM Ab Negative 07/04/21 04:27: WBC 12.0 H, RBC 4.62, Hgb 13.2, Hct 38.4 L, MCV 83.1, MCH 28.6, MCHC 34.4, RDW Std Deviation 46.5 H, RDW Coeff of Augustina 15.3 H, Plt Count 324, MPV 10.9, Immature Gran % (Auto) 0.600, Neut % (Auto) 84.9 H, Lymph % (Auto) 7.1 L, Brantley % (Auto) 7.3, Eos % (Auto) 0.0, Baso % (Auto) 0.1, Absolute Neuts (auto) 10.2 H, Absolute Lymphs (auto) 0.86, Nucleated RBC % 0, Differential Comment SCANNED, Atypical Lymphocytes 1+ 07/04/21 04:27: Sodium 136, Potassium 4.5, Chloride 108 H, Carbon Dioxide 20.0 L , Anion Gap 8, BUN 44 H, Creatinine 0.92, Estim Creat Clear Calc 76.85, Est GFR (MDRD) Af Amer 105, Est GFR (MDRD) Non-Af 87, BUN/Creatinine Ratio 47.8 H, Glucose 132 H, Calcium 8.8, Total Bilirubin 0.30, AST 58 H, ALT 36, Alkaline Phosphatase 51, Total Protein 6.6, Albumin 2.5 L, Globulin 4.1, Albumin/Globulin Ratio 0.6 L Micro: Microbiology 07/01/21 12:57 Blood Culture (Wb) - Anticubital Right Blood Culture - P reliminary No growth in 48 hours. 07/01/21 13:31 Blood Culture (Wb) - Anticubital Left Blood Culture - Preliminary No growth in 48 hours. 07/02/21 06:00 Urine, Random Urine Culture - Final Presumptive E. coli 07/02/21 06:00 Urine, Clean Catch Legionella Antigen - Final 07/02/21 06:00 Urine, Clean Catch Streptococcus pneumoniae Antigen (M - Final 07/01/21 13:00 Nasal Secretion SARS-CoV-2 Antigen (Rapid) - Final Physical Exam Const alert and no apparent distress Constitutional Narrative: Up in chair. Resp normal respiratory effort, no retractions, no use of accessory muscles and clear to auscultation bilaterally Cardio regular rate, regular rhythm, S1 normal heart sound and S2 normal heart sound GI normal to inspection, nondistended, normoactive bowel sounds, soft to palpation and non-tender Assessment & Plan Assessment/Plan (1) Bilateral pneumonia: QUALIFIERS: Qualified Code(s): J18.9 - Pneumonia, unspecified organism (2) Suspected COVID-19 virus infection: PLAN: 1. acute hypoxic respiratory failure 2/2 suspected covid 19 and pulmonary fibrosis/COPD on Airvo. Continue IS wean oxygen as able 2. suspected COVID 19 rapid and PCR negative Antibodies ordered to help verify unvaccinated onset / dexamethasone Patient declining remdesivir at this time as he is concerned about kidney failure. Explained to him that we would be monitoring his kidney function while he was here there is any evidence of any kidney function that we will discontinu e that. He wishes to hold off on that. pt to contemplate baricitinib 3. VTE prophylaxis: LMWH Charges/Coding Visit Charges Inpatient E&M: 47499 Subs Hosp L2
[2021-07-04] MEDS: 0.9% Saline Lock 10 ML Syringe IV (22:11)
[2021-07-05] VITALS (17 sets, daily range): BP systolic 120–123; BP diastolic 67–77; PULSE 58–71; RESP 18–20; TEMP 36.2–36.8; O2SAT 89–98
[2021-07-05] MEDS: Acetaminophen 325 MG Tablet 650 MG PO ×3 (07:50→21:58)
[2021-07-05] MEDS: guaiFENesin/D-Methorphan TAB.SR.12H 1 TABLET PO ×2 (07:50→21:58)
[2021-07-05] MEDS: Enoxaparin 30 MG/0.3 ML Syringe SC ×2 (07:50→21:58)
[2021-07-05] MEDS: dexAMETHasone 4 MG Tablet 6 MG PO (07:50)
[2021-07-05 09:17] LABS: Absolute Lymphocyte Count 1.06 X10^3/uL (0.83-4.51); Absolute Neutrophil Count 10.9 X10^3/uL (2.0-7.7); Basophil# 0.02 X10^3/uL; Basophil% 0.2 % (0-1); Hemoglobin 13.4 g/dL (13.0-16.5); Lymphocyte # 1.06 X10^3/ul (0.83-4.51); Lymphocyte % 8.1 % (19-41); Mean Corp Hgb Conc 34.4 g/dL (32-36); Mean Corpuscular Hgb 28.2 pg (27.0-32.0); Mean Corpuscular Volume 82.1 fL (80-94); Mean Platelet Vol. 10.6 fl (6.2-12.0); Monocyte# 0.96 X10^3/uL; Monocyte% 7.3 % (0-10); NRBC Flagged by Analyzer 0 % (0-5); Neutrophil % 83.3 % (47-70); POSITIVE MORPHOLOGY YES; Platelet Count 338 K/mm3 (150-450); RBC Distribution Width CV 15.1 % (11.6-14.6); RBC Distribution Width SD 45.9 fl (35.1-43.9); Red Blood Count 4.75 M/mm3 (4.6-6.2); White Blood Count 13.1 K/mm3 (4.4-11.0)
[2021-07-05 09:18] LABS: Differential Indicated SCAN CRITERIA MET
[2021-07-05 09:46] LABS: ALB/GLOB Ratio 0.6 RATIO (0.9-2.4); AST(SGOT) 83 U/L (15-37); Alanine Aminotransfer ALT/SGPT 61 U/L (16-61); Albumin, Serum 2.7 g/dL (3.2-5.0); Alkaline Phosphatase 54 U/L (45-117); Anion Gap 7 (5-15); BUN 39 mg/dL (7-18); BUN/Creat Ratio 46.2 RATIO (10-20); Calcium,Total 8.9 mg/dL (8.5-10.1); Chloride 109 mmol/L (98-107); Creatinine, Serum 0.84 mg/dL (0.70-1.30); EST Glomerular Filtration Rate 96 mL/min (>60); Est Glom Filt Rate - Afr Amer 116 mL/min (>60); Estimated Creatinine Clearance 84.17 ml/min; Globulin 4.2 g/dL (2.2-4.2); Glucose 116 mg/dL (74-106); Potassium 4.4 mmol/L (3.5-5.1); Protein, Total 6.9 g/dL (6.4-8.2); Sodium Level 140 mmol/L (136-145)
--- NOTE | 2021-07-05 10:52 | PN.HOSP_ITS ---
Subjective Subjective Breathing ok. Objective Data Objective Data Vital Signs: Vital Signs Temp Pulse Resp BP Pulse Ox 36.2 C L 66 20 H 121/75 H 94 07/05/21 07:47 07/05/21 08:02 07/05/21 08:02 07/05/21 07:47 07/05/21 08:02 Oxygen Flow Rate (L/min) 55 Oxygen Delivery Method Airvo Weight: 82.1 kg Body Mass Index (BMI) 26.7 Intake & Output: Intake and Output for Last 24 Hours 07/03/21 07/04/21 07/05/21 23:59 23:59 23:59 Intake Total 600 / 600 1150 / 1150 Output Total 1000 / 1300 1050 / 1350 600 / 600 Balance -400 / -700 100 / -200 -600 / -600 Lab / Micro Data Result Diagrams: 07/05/21 08:50 07/05/21 08:50 Labs: Laboratory Results - last 24 hr 07/05/21 08:50: WBC 13.1 H, RBC 4.75, Hgb 13.4, Hct 39.0 L, MCV 82.1, MCH 28.2, MCHC 34.4, RDW Std Deviation 45.9 H, RDW Coeff of Augustina 15.1 H, Plt Count 338, MPV 10.6, Immature Gran % (Auto) 1.100 H, Neut % (Auto) 83.3 H, Lymph % (Auto) 8.1 L , Sutter % (Auto) 7.3, Eos % (Auto) 0.0, Baso % (Auto) 0.2, Absolute Neuts (auto) 10.9 H, Absolute Lymphs (auto) 1.06, Nucleated RBC % 0 07/05/21 08:50: Sodium 140, Potassium 4.4, Chloride 109 H, Carbon Dioxide 24.0, Anion Gap 7, BUN 39 H, Creatinine 0.84, Estim Creat Clear Calc 84.17, Est GFR (MDRD) Af Amer 116, Est GFR (MDRD) Non-Af 96, BUN/Creatinine Ratio 46.2 H, Glucose 116 H, Calcium 8.9, Total Bilirubin 0.50, AST 83 H, ALT 61, Alkaline Phosphatase 54, Total Protein 6.9, Albumin 2.7 L, Globulin 4.2, Albumin/Globulin Ratio 0.6 L Micro: Microbiology 07/01/21 12:57 Blood Culture (Wb) - Anticubital Right Blood Culture - Preliminary No growth in 48 hours. 07/01/21 13:31 Blood Culture (Wb) - Anticubital Left Blood Culture - Preliminary No growth in 48 hours. 07/02/21 06:00 Urine, Random Urine Culture - Final Presumptive E. coli 07/02/21 06:00 Urine, Clean Catch Legionella Antigen - Final 07/02/21 06:00 Urine, Clean Catch Streptococcus pneumoniae Antigen (M - Final 07/01/21 13:00 Nasal Secretion SARS-CoV-2 Antigen (Rapid) - Final Physical Exam Const Constitutional Narrative: still on Airvo. Resp normal respiratory effort, no retractions, no use of accessory muscles and clear to auscultation bilaterally Cardio regular rate, regular rhythm, S1 normal heart sound and S2 normal heart sound GI normal to inspection, nondistended, normoactive bowel sounds, soft to palpation, non-tender and non-distended Extremity normal to inspection Assessment & Plan Assessment/Plan (1) Bilateral pneumonia: QUALIFIERS: Qualified Code(s): J18.9 - Pneumonia, unspecified organism (2) Suspected COVID-19 virus infection: (3) Acute respiratory failure with hypoxia: PLAN: 1. acute hypoxic respiratory failure 2/2 suspected covid 19 and pulmonary fibrosis/COPD on Airvo. Continue IS wean oxygen as able 2. suspected COVID 19 rapid and PCR negative IgM negative, IgG was 0.28 unvaccinated onset 06/24 dexamethasone Patient declining remdesivir at this time as he is concerned about kidney failure. Explained to him that we would be monitoring his kidney function while he was here there is any evidence of any kidney function that we will discontinue that. He wishes to hold off on that. pt to contemplate baricitinib Strep and Legionella antigens negative. No reagent for respiratory panel. Check rapid flu. 3. VTE prophylaxis: LMWH Charges/Coding Visit Charges Inpatient E&M: 45954 Subs Hosp L2
[2021-07-05] MEDS: 0.9% Saline Lock 10 ML Syringe IV (21:58)
[2021-07-06] VITALS (15 sets, daily range): BP systolic 108–128; BP diastolic 69–74; PULSE 57–81; RESP 18–20; TEMP 36.2–36.6; O2SAT 85–96
[2021-07-06] MEDS: dexAMETHasone 4 MG Tablet 6 MG PO (08:26)
[2021-07-06] MEDS: guaiFENesin/D-Methorphan TAB.SR.12H 1 TABLET PO ×2 (08:26→22:42)
[2021-07-06] MEDS: Enoxaparin 30 MG/0.3 ML Syringe SC ×2 (08:27→22:43)
--- NOTE | 2021-07-06 12:34 | PCM.PN.HOSP ---
Subjective Subjective Breathing well. No new complaints. Objective Data Objective Data Vital Signs: Vital Signs Temp Pulse Resp BP Pulse Ox 36.4 C L 70 18 125/74 H 92 07/06/21 08:22 07/06/21 08:22 07/06/21 08:22 07/06/21 08:22 07/06/21 08:22 Oxygen Flow Rate (L/min) 60 Oxygen Delivery Method Airvo Weight: 82.1 kg Body Mass Index (BMI) 26.7 Intake & Output: Intake and Output for Last 24 Hours 07/04/21 07/05/21 07/06/21 23:59 23:59 23:59 Intake Total 1150 / 1150 850 / 850 500 / 500 Output Total 1050 / 1350 800 / 1100 900 / 900 Balance 100 / -200 50 / -250 -400 / -400 Lab / Micro Data Result Diagrams: 07/05/21 08:50 07/05/21 08:50 Micro: Microbiology 07/01/21 12:57 Blood Culture (Wb) - Anticubital Right Blood Culture - Preliminary No growth in 48 hours. 07/01/21 13:31 Blood Culture (Wb) - Anticubital Left Blood Culture - Preliminary No growth in 48 hours. 07/02/21 06:00 Urine, Random Urine Culture - Final Presumptive E. coli 07/02/21 06:00 Urine, Clean Catch Legionella Antigen - Final 07/02/21 06:00 Urine, Clean Catch Streptococcus pneumoniae Antigen (M - Final 07/01/21 13:00 Nasal Secretion SARS-CoV-2 Antigen (Rapid) - Final Physical Exam Const alert Resp normal respiratory effort and no retractions Resp Narrative: bibasilar crackles Cardio regular rate, regular rhythm, S1 normal heart sound and S2 normal heart sound GI normal to inspection, nondistended, normoactive bowel sounds, soft to palpation, non-tender and non-distended Extremity normal to inspection Assessment & Plan Assessment/Plan (1) Bilateral pneumonia: QUALIFIERS: Qualified Code(s): J18.9 - Pneumonia, unspecified organism (2) Suspected COVID-19 virus infection: (3) Acute respiratory failure with hypoxia: PLAN: 1. acute hypoxic respiratory failure 2/2 suspected covid 19 and pulmonary fibrosis/COPD on Airvo. Continue IS wean oxygen as able furosemide challenge 2. suspected COVID 19 rapid and PCR negative IgM negative, IgG was 0.28 (essentially negative) unvaccinated onset 06/24 dexamethasone Patient declining remdesivir at this time as he is concerned about kidney failure. Explained to him that we would be monitoring his kidney function while he was here there is any evidence of any kidney function that we will discontinue that. He wishes to hold off on that. pt to contemplate baricitinib Strep and Legionella antigens negative. No reagent for respiratory panel. Check rapid flu. 3. VTE prophylaxis: LMWH Charges/Coding Visit Charges Inpatient E&M: 09603 Subs Hosp L2
[2021-07-06] MEDS: Furosemide 40 MG/4 ML Vial IV (13:35)
[2021-07-06] MEDS: Acetaminophen 325 MG Tablet 650 MG PO ×2 (13:35→22:42)
[2021-07-06] MEDS: 0.9% Saline Lock 10 ML Syringe IV ×2 (13:35→22:43)
[2021-07-07] VITALS (19 sets, daily range): BP systolic 105–121; BP diastolic 61–72; PULSE 66–96; RESP 18–26; TEMP 36.1–36.8; O2SAT 84–96
[2021-07-07] MEDS: dexAMETHasone 4 MG Tablet 6 MG PO (07:47)
[2021-07-07] MEDS: guaiFENesin/D-Methorphan TAB.SR.12H 1 TABLET PO ×2 (07:47→21:28)
[2021-07-07] MEDS: Enoxaparin 30 MG/0.3 ML Syringe SC ×2 (07:48→21:28)
--- NOTE | 2021-07-07 11:20 | PCM.PN.HOSP ---
Subjective Subjective Breathing unchanged. Objective Data Objective Data Vital Signs: Vital Signs Temp Pulse Resp BP Pulse Ox 36.3 C L 80 20 H 116/62 94 07/07/21 09:01 07/07/21 09:01 07/07/21 09:01 07/07/21 09:01 07/07/21 09:01 Oxygen Flow Rate (L/min) 60 Oxygen Delivery Method Airvo Weight: 82.1 kg Body Mass Index (BMI) 26.7 Intake & Output: Intake and Output for Last 24 Hours 07/05/21 07/06/21 07/07/21 23:59 23:59 23:59 Intake Total 850 / 850 1600 / 1850 250 / 250 Output Total 800 / 1100 900 / 1250 625 / 625 Balance 50 / -250 700 / 600 -375 / -375 Lab / Micro Data Result Diagrams: 07/05/21 08:50 07/05/21 08:50 Micro: Microbiology 07/01/21 13:31 Blood Culture (Wb) - Anticubital Left Blood Culture - Final No growth in 5 days. 07/06/21 13:29 Mucosa - Nasopharyngeal Influenza Types A,B Direct FA (BALJEET) - Final 07/01/21 12:57 Blood Culture (Wb) - Anticubital Right Blood Culture - Final No growth in 5 days. 07/02/21 06:00 Urine, Random Urine Culture - Final Presumptive E. coli 07/02/21 06:00 Urine, Clean Catch Legionella Antigen - Final 07/02/21 06:00 Urine, Clean Catch Streptococcus pneumoniae Antigen (M - Final 07/01/21 13:00 Nasal Secretion SARS-CoV-2 Antigen (Rapid) - Final Physical Exam Const alert Resp normal respiratory effort and no retractions Cardio regular rate and regular rhythm Cardio Narrative: bibasilar crackles. GI normal to inspection, nondistended, normoactive bowel sounds, soft to palpation, non-tender and non-distended Extremity normal to inspection Psych Psych Narrative: flat affect. Assessment & Plan Assessment/Plan (1) Bilateral pneumonia: QUALIFIERS: Qualified Code(s): J18.9 - Pneumonia, unspecified organism (2) Suspected COVID-19 virus infection: (3) Acute respiratory failure with hypoxia: PLAN: 1. acute hypoxic respiratory failure 2/2 suspected covid 19 and pulmonary fibrosis/COPD on Airvo. Continue IS wean oxygen as able furosemide challenge infectious work up so far negative, though sputum culture has been ordered, not performed. Overall 2. suspected COVID 19 Onset 06/24/2021, quarantine through 07/13. rapid and PCR negative IgM negative, IgG was 0.28 (essentially negative) unvaccinated onset 06/24 dexamethasone Patient declining remdesivir at this time as he is concerned about kidney failure. Explained to him that we would be monitoring his kidney function while he was here there is any evidence of any kidney function that we will discontinue that. He wishes to hold off on that. pt to contemplate baricitinib Strep and Legionella antigens negative. No reagent for respiratory panel. Check rapid flu. 3. VTE prophylaxis: LMWH Advanced care planning: Spent an additional 25 minutes discussing with the patient as well as the patient's son-in-law, Braulio. Explained that I do not know if the patient is going to get better or get worse at this time. Patient asking if family could come in. Discussed with nursing and plan is to allow for 2 for members you do not have COVID to come and see the patient either today or tomorrow for a one-time visit. So I did discuss with them both that if it is decided the patient wishes to proceed with hospice then we may be more lenient. Issue is if patient is to go home with hospice he would need to have a generator to be able to accommodate the condenser's. Charges/Coding Visit Charges Inpatient E&M: 92729 Subs Hosp L2 Procedures Hospitalists Procedures: 38709 Advncd Care Plan 30 Min
[2021-07-08] VITALS (13 sets, daily range): BP systolic 104–127; BP diastolic 66–80; PULSE 83–117; RESP 18–23; TEMP 36.2–36.9; O2SAT 81–95
--- NOTE | 2021-07-08 01:14 | NURSING ---
O2 sat 86-88% on airvo 60L/95%. Pt had been also wearing NRB @15L but he removed it stating he don't want to wear it any longer. Explained to pt the airvo alone is not keeping his O2 levels where we would like them to be. Explained bipap to pt and asked if he would be willing to try it. Pt states not at this time. Resp 22, pt does not appear to be in distress. Also explained to pt what would happen if his body goes without needed amount of Pt oxygen for a period of time. Pt continues to state he does not want to wear the NRB or bipap at this time. Will continue to monitor.
--- NOTE | 2021-07-08 02:40 | CPS ---
Plus 100% NRB mask on top of airvo
--- NOTE | 2021-07-08 03:00 | NURSING ---
O2 SAT 81% ON AIRVO. PT WILLING TO PUT NRB BACK ON @ 15L WELL. SATS INCREASED TO 87%.
[2021-07-08] MEDS: dexAMETHasone 4 MG Tablet 6 MG PO (08:00)
[2021-07-08] MEDS: Enoxaparin 30 MG/0.3 ML Syringe SC ×2 (08:01→21:00)
[2021-07-08] MEDS: guaiFENesin/D-Methorphan TAB.SR.12H 1 TABLET PO ×2 (08:01→21:00)
--- NOTE | 2021-07-08 08:13 | PCM.PN.HOSP ---
Subjective Subjective Patient reports slight improvement in shortness of breath but he still has cough mainly dry. Tachypneic respiratory rate 20-22/min. Afebrile Objective Data Objective Data Vital Signs: Vital Signs Temp Pulse Resp BP Pulse Ox 98.0 F 104 H 20 H 127/67 H 93 07/08/21 08:00 07/08/21 08:00 07/08/21 08:00 07/08/21 08:00 07/08/21 08:00 Oxygen Flow Rate (L/min) 60 Oxygen Delivery Method Airvo Weight: 180 lb 15.992 oz Body Mass Index (BMI) 26.7 Intake & Output: Intake and Output for Last 24 Hours 07/06/21 07/07/21 07/08/21 23:59 23:59 23:59 Intake Total 1600 / 1850 1125 / 1125 Output Total 900 / 1250 1125 / 1475 600 / 600 Balance 700 / 600 0 / -350 -600 / -600 Lab / Micro Data Result Diagrams: 07/05/21 08:50 07/05/21 08:50 Micro: Microbiology 07/01/21 13:31 Blood Culture (Wb) - Anticubital Left Blood Culture - Final No growth in 5 days. 07/06/21 13:29 Mucosa - Nasopharyngeal Influenza Types A,B Direct FA (BALJEET) - Final 07/01/21 12:57 Blood Culture (Wb) - Anticubital Right Blood Culture - Final No growth in 5 days. 07/02/21 06:00 Urine, Random Urine Culture - Final Presumptive E. coli 07/02/21 06:00 Urine, Clean Catch Legionella Antigen - Final 07/02/21 06:00 Urine, Clean Catch Streptococcus pneumoniae Antigen (M - Final 07/01/21 13:00 Nasal Secretion SARS-CoV-2 Antigen (Rapid) - Final Physical Exam Narrative General: Alert, Oriented x3, Cooperative HEENT: Atraumatic, PERRLA, EOMI, Normocephalic Oral: No Gingival or Mucosal Lesions/ Ulcerations Neck: Supple, No JVD, Negative Carotid Bruits Lungs: Air entry diminished in bilateral lung bases. No crepitation/rhonchi. Severe hypoxia. Mild tachypnea. Cardiovascular: Mild sinus tachycardia, normal S1, Normal S2, No murmurs Abdomen: Bowel Sounds Present, Soft, Non Tender, Non-Distended : No renal angle tenderness. No suprapubic tenderness. Extremities: No edema, Capillary Refill Less than 3 Seconds Skin: No rashes, No breakdown Musculoskeletal: No Tenderness to Palpation of Joints or Extremities Neurological: Cranial nerves II-XII grossly intact, DTR 2+/4 and Symmetrical, Neuro grossly intact Psych/Mental Status: Normal Affect, Appropriate. Resp normal respiratory effort and no retractions Resp Narrative: bibasilar crackles Cardio regular rate and regular rhythm Cardio Narrative: bibasilar crackles. GI normal to inspection, nondistended, normoactive bowel sounds, soft to palpation, non-tender and non-distended Extremity normal to inspection Skin no rashes or lesions noted Psych Psych Narrative: flat affect. Assessment & Plan Assessment/Plan (1) Bilateral pneumonia: QUALIFIERS: Qualified Code(s): J18.9 - Pneumonia, unspecified organism (2) Suspected COVID-19 virus infection: (3) Acute respiratory failure with hypoxia: PLAN: 1. acute hypoxic respiratory failure secondary to bilateral COVID-19 pneumonia with pulmonary fibrosis/COPD: Patient is being a smoker and quit about 10 years ago. On air Vo. Continue incentive spirometry. Negative fluid balance -125 mill per hour. Blood cultures x2 does not show any growth. Silverio antigens are negative. Rapid flu antigen is negative. Patient has been longtime smoker. Chest CTA shows chronic interstitial fibrosis worse in upper lobes with bullous emphysematous giving high suspicion of COPD. Never had PFT. 2. suspected COVID 19: Onset 06/24/2021, quarantine through 07/13. Remdesivir was ordered but patient got 1 dose on 07/02 and thereafter he refused. I talked in detail with patient's son and near the bedside and explained all their questions and concerns. Patient is still contemplating baricitinib. Strep and Legionella antigens negative. No reagent for respiratory panel. Rapid flu negative. rapid and PCR negative IgM negative, IgG was 0.28 (essentially negative) unvaccinated 3. VTE prophylaxis: LMWH Patient is refusing for BiPAP definitely does not want intubation. DNRCC arrest with no intubation Active Medications Acetaminophen (Acetaminophen 325 Mg Tablet) 650 mg PO Q6H PRN PRN PRN Reason: Pain Score 1-10/Temp > 100.7 F Last Admin: 07/06/21 22:42 Dose: 650 mg Documented by: Dexamethasone (Dexamethasone 4 Mg Tablet) 6 mg PO BREAKFAST [facility] Stop: 07/10/21 08:01 Last Admin: 07/08/21 08:00 Dose: 6 mg Documented by: Enoxaparin Sodium (Enoxaparin 30 Mg/0.3 Ml Syringe) 30 mg SC BID [facility] Last Admin: 07/08/21 08:01 Dose: 30 mg Documented by: Guaifenesin (Guaifenesin/D-Methorphan Tab.Sr.12h) 1 tablet PO BID [facility] Last Admin: 07/08/21 08:01 Dose: 1 tablet Documented by: Ondansetron HCl (Ondansetron 4 Mg/2 Ml Vial) 4 mg IV Q8H PRN PRN PRN Reason: NAUSEA/VOMITING Oxycodone HCl (Oxycodone 5 Mg Tablet) 5 mg PO Q4H PRN PRN PRN Reason: Pain Score 4-10 Senna/Docusate Sodium (Senna/Docusate Sodium 1 Tablet) 2 tablet PO BID PRN PRN PRN Reason: Constipation Sodium Chloride (0.9% Saline Lock 10 Ml Syringe) 10 - 40 ml IV UD PRN PRN Reason: SALINE FLUSH Last Admin: 07/06/21 22:43 Dose: 10 ml Documented by: Sodium Chloride (Sodium Chloride 0.65% 1 [place].Btl) 2 spray NASAL BID PRN PRN PRN Reason: NASAL DRYNESS Clinical Impression(s) from Imaging Studies Chest X-Ray 07/01/21 12:45 IMPRESSION: Bilateral pulmonary infiltrates worse in the left hemithorax. Follow-up is recommended. Chest CTA 07/01/21 13:43 IMPRESSION: Diffuse areas of ground glass appearance involving both lungs superimposed on chronic interstitial fibrosis worse in the upper lobes with bullous formation. Electronically Signed: Kevon Kirk MD at 14:33 EST , Service support , Charges/Coding Visit Charges Inpatient E&M: [id number] Subs Hosp L2
[2021-07-09] VITALS (12 sets, daily range): BP systolic 100–127; BP diastolic 66–76; PULSE 75–105; RESP 16–24; TEMP 36.4–36.8; O2SAT 83–95
--- NOTE | 2021-07-09 05:46 | NURSING ---
Pt sats dropped into low 80's, this RN tried to apply non-rebreather mask over airvo, pt refused
[2021-07-09 06:38] LABS: Absolute Lymphocyte Count 0.86 X10^3/uL (0.83-4.51); Absolute Neutrophil Count 12.2 X10^3/uL (2.0-7.7); Basophil# 0.02 X10^3/uL; Basophil% 0.1 % (0-1); Eosinophils% 0.7 % (0-5); Hematocrit 37.7 % (40-54); Hemoglobin 12.9 g/dL (13.0-16.5); Lymphocyte # 0.86 X10^3/ul (0.83-4.51); Lymphocyte % 5.9 % (19-41); Mean Corp Hgb Conc 34.2 g/dL (32-36); Mean Platelet Vol. 10.6 fl (6.2-12.0); Monocyte# 1.13 X10^3/uL; Monocyte% 7.7 % (0-10); NRBC Flagged by Analyzer 0 % (0-5); Neutrophil # 12.21 X10^3/uL (2.7-7.7); Neutrophil % 83.5 % (47-70); Platelet Count 363 K/mm3 (150-450); RBC Distribution Width CV 14.6 % (11.6-14.6); RBC Distribution Width SD 42.8 fl (35.1-43.9); White Blood Count 14.6 K/mm3 (4.4-11.0)
[2021-07-09 07:02] LABS: ALB/GLOB Ratio 0.5 RATIO (0.9-2.4); AST(SGOT) 38 U/L (15-37); Alanine Aminotransfer ALT/SGPT 68 U/L (16-61); Albumin, Serum 2.5 g/dL (3.2-5.0); Alkaline Phosphatase 51 U/L (45-117); Anion Gap 9 (5-15); BUN 53 mg/dL (7-18); BUN/Creat Ratio 54.8 RATIO (10-20); Calcium,Total 9.4 mg/dL (8.5-10.1); Chloride 106 mmol/L (98-107); Creatinine, Serum 0.97 mg/dL (0.70-1.30); EST Glomerular Filtration Rate 82 mL/min (>60); Est Glom Filt Rate - Afr Amer 99 mL/min (>60); Estimated Creatinine Clearance 72.89 ml/min; Globulin 4.6 g/dL (2.2-4.2); Glucose 106 mg/dL (74-106); Potassium 4.3 mmol/L (3.5-5.1); Protein, Total 7.1 g/dL (6.4-8.2); Sodium Level 137 mmol/L (136-145)
[2021-07-09] MEDS: guaiFENesin/D-Methorphan TAB.SR.12H 1 TABLET PO ×2 (08:21→21:53)
[2021-07-09] MEDS: dexAMETHasone 4 MG Tablet 6 MG PO (08:21)
[2021-07-09] MEDS: Enoxaparin 30 MG/0.3 ML Syringe SC ×2 (08:21→21:52)
--- NOTE | 2021-07-09 10:54 | NURSING ---
spoke with Director of [facility] and also Dr. Gary per son in law Ramon request to be able to visit pt today and attend the family meeting regarding hospice decision. Permission given for this to occur today as a one time occurrence- updated Jesika Mendez Liaison and she will inform of visit of 3 allowed for today only to assist in decision making.
--- NOTE | 2021-07-09 14:21 | NURSING ---
spoke with hospice- states Liason red Raul will be here 07/10/21 at 0900 to meet with family/pt about hospice/services needed at home etc. will inform md of that.
--- NOTE | 2021-07-09 14:59 | PCM.PN.HOSP ---
Subjective Subjective Patient does not want BiPAP. Initially was refusing for air Vo but later he agreed for AIRVO for short time. Discussed with the family members. Agreeable for hospice consult and consult requested FOR SAME. Ox 87% to 90% on 90% maximum FiO2 by AIRVO Objective Data Objective Data Vital Signs: Vital Signs Temp Pulse Resp BP Pulse Ox 97.9 F 105 H 24 H 115/66 87 07/09/21 08:16 07/09/21 13:57 07/09/21 08:16 07/09/21 08:16 07/09/21 14:07 Oxygen Flow Rate (L/min) 60 Oxygen Delivery Method Airvo Weight: 180 lb 15.992 oz Body Mass Index (BMI) 26.7 Intake & Output: Intake and Output for Last 24 Hours 07/07/21 07/08/21 07/09/21 23:59 23:59 23:59 Intake Total 1125 / 1125 500 / 500 200 / 200 Output Total 1125 / 1475 800 / 1075 450 / 450 Balance 0 / -350 -300 / -575 -250 / -250 Lab / Micro Data Result Diagrams: 07/09/21 06:20 07/09/21 06:20 Labs: Laboratory Results - last 24 hr 07/09/21 06:20: WBC 14.6 H, RBC 4.60, Hgb 12.9 L, Hct 37.7 L, MCV 82.0, MCH 28.0, MCHC 34.2, RDW Std Deviation 42.8, RDW Coeff of Augustina 14.6, Plt Count 363, MPV 10.6, Immature Gran % (Auto) 2.100 H, Neut % (Auto) 83.5 H, Lymph % (Auto) 5.9 L, [place] % (Auto) 7.7, Eos % (Auto) 0.7, Baso % (Auto) 0.1, Absolute Neuts (auto) 12.2 H, Absolute Lymphs (auto) 0.86, Nucleated RBC % 0 07/09/21 06:20: Sodium 137, Potassium 4.3, Chloride 106, Carbon Dioxide 22.0, Anion Gap 9, BUN 53 H, Creatinine 0.97, Estim Creat Clear Calc 72.89, Est GFR (MDRD) Af Amer 99, Est GFR (MDRD) Non-Af 82, BUN/Creatinine Ratio 54.8 H, Glucose 106, Calcium 9.4, Total Bilirubin 0.80, AST 38 H, ALT 68 H, Alkaline Phosphatase 51, Total Protein 7.1, Albumin 2.5 L, Globulin 4.6 H, Albumin/Globulin Ratio 0.5 L Micro: Microbiology 07/01/21 13:31 Blood Culture (Wb) - Anticubital Left Blood Culture - Final No growth in 5 days. 07/06/21 13:29 Mucosa - Nasopharyngeal Influenza Types A,B Direct FA (BALJEET) - Final 07/01/21 12:57 Blood Culture (Wb) - Anticubital Right Blood Culture - Final No growth in 5 days. 07/02/21 06:00 Urine, Random Urine Culture - Final Presumptive E. coli 07/02/21 06:00 Urine, Clean Catch Legionella Antigen - Final 07/02/21 06:00 Urine, Clean Catch Streptococcus pneumoniae Antigen (M - Final 07/01/21 13:00 Nasal Secretion SARS-CoV-2 Antigen (Rapid) - Final Physical Exam Narrative General: Alert, Oriented x3, Cooperative HEENT: Atraumatic, PERRLA, EOMI, Normocephalic Oral: No Gingival or Mucosal Lesions/ Ulcerations Neck: Supple, No JVD, Negative Carotid Bruits Lungs: Air entry diminished in bilateral lung bases. No crepitation/rhonchi. Severe hypoxia. Knee at rest. Mild tachypnea. Cardiovascular: Mild sinus tachycardia, normal S1, Normal S2, No murmurs Abdomen: Bowel Sounds Present, Soft, Non Tender, Non-Distended : No renal angle tenderness. No suprapubic tenderness. Extremities: No edema, Capillary Refill Less than 3 Seconds Skin: No rashes, No breakdown Musculoskeletal: No Tenderness to Palpation of Joints or Extremities Neurological: Cranial nerves II-XII grossly intact, DTR 2+/4 and Symmetrical, Neuro grossly intact Psych/Mental Status: Normal Affect, Appropriate. Assessment & Plan Assessment/Plan (1) Bilateral pneumonia: QUALIFIERS: Qualified Code(s): J18.9 - Pneumonia, unspecified organism (2) Suspected COVID-19 virus infection: (3) Acute respiratory failure with hypoxia: PLAN: 1. acute hypoxic respiratory failure secondary to bilateral COVID-19 pneumonia with pulmonary fibrosis/COPD: Patient is being a smoker and quit about 10 years ago. On air Vo. Continue incentive spirometry. Negative fluid balance -125 mill per hour. Blood cultures x2 does not show any growth. Silverio antigens are negative. Rapid flu antigen is negative. Patient has been longtime smoker. Chest CTA shows chronic interstitial fibrosis worse in upper lobes with bullous emphysematous giving high suspicion of COPD. Never had PFT. 07/09: Family meeting was done with patient's , son and grandson. They all agreed for hospice consult. They prefer home hospice care. Detailed discussion regarding CT finding, smoking and COVID-19 pneumonia was done and patient's family affirmed understanding. Patient does not want artificial life support intubation, BiPAP. I further told them air Vo would not be option for hospice and they agreed. Further management plan and discharge process after the hospice consult. 2. suspected COVID 19: Onset 06/24/2021, quarantine through 07/13. Remdesivir was ordered but patient got 1 dose on 07/02 and thereafter he refused. I talked in detail with patient's son and near the bedside and explained all their questions and concerns. Strep and Legionella antigens negative. No reagent for respiratory panel. Rapid flu negative. Patient family member desires hospice. rapid and PCR negative IgM negative, IgG was 0.28 (essentially negative) unvaccinated 3. VTE prophylaxis: LMWH Patient is refusing for BiPAP definitely does not want intubation. DNRCC arrest with no intubation Total time of the visit including total time spent in counseling or coordination of care, (more than 50% of the total time, spent in obtaining medical information from nurses and other ancillary care providers,explaining to the patient about labs, imaging, diagnosis and management), family meeting regarding palliative care and discussion of treatment approaches, review of labs and imaging is 40 minutes. Clinical Impression(s) from Imaging Studies Chest X-Ray 07/01/21 12:45 IMPRESSION: Bilateral pulmonary infiltrates worse in the left hemithorax. Follow-up is recommended. Chest CTA 07/01/21 13:43 IMPRESSION: Diffuse areas of ground glass appearance involving both lungs superimposed on chronic interstitial fibrosis worse in the upper lobes with bullous formation. Charges/Coding Visit Charges Inpatient E&M: 77498 Subs Hosp L3
[2021-07-10] VITALS (7 sets, daily range): BP systolic 106–114; BP diastolic 73–75; PULSE 66–102; RESP 15–24; TEMP 36.3–36.5; O2SAT 81–94
[2021-07-10 06:37] LABS: Absolute Lymphocyte Count 0.87 X10^3/uL (0.83-4.51); Absolute Neutrophil Count 12.9 X10^3/uL (2.0-7.7); Basophil# 0.03 X10^3/uL; Basophil% 0.2 % (0-1); Eosinophil# 0.05 X10^3/uL; Eosinophils% 0.3 % (0-5); Hematocrit 37.6 % (40-54); Hemoglobin 12.5 g/dL (13.0-16.5); Lymphocyte # 0.87 X10^3/ul (0.83-4.51); Lymphocyte % 5.5 % (19-41); Mean Corp Hgb Conc 33.2 g/dL (32-36); Mean Corpuscular Hgb 27.3 pg (27.0-32.0); Mean Corpuscular Volume 82.1 fL (80-94); Mean Platelet Vol. 10.8 fl (6.2-12.0); Monocyte# 1.58 X10^3/uL; Monocyte% 10.1 % (0-10); NRBC Flagged by Analyzer 0 % (0-5); Neutrophil # 12.87 X10^3/uL (2.7-7.7); Neutrophil % 82.1 % (47-70); POSITIVE DIFFERENTIAL YES; Platelet Count 364 K/mm3 (150-450); RBC Distribution Width CV 14.7 % (11.6-14.6); RBC Distribution Width SD 43.7 fl (35.1-43.9); Red Blood Count 4.58 M/mm3 (4.6-6.2); White Blood Count 15.7 K/mm3 (4.4-11.0)
[2021-07-10 06:41] LABS: Differential Indicated SCAN CRITERIA MET
[2021-07-10 07:44] LABS: ALB/GLOB Ratio 0.5 RATIO (0.9-2.4); AST(SGOT) 44 U/L (15-37); Alanine Aminotransfer ALT/SGPT 82 U/L (16-61); Albumin, Serum 2.3 g/dL (3.2-5.0); Alkaline Phosphatase 56 U/L (45-117); Anion Gap 9 (5-15); BUN 46 mg/dL (7-18); BUN/Creat Ratio 52.8 RATIO (10-20); Calcium,Total 9.3 mg/dL (8.5-10.1); Chloride 106 mmol/L (98-107); Creatinine, Serum 0.87 mg/dL (0.70-1.30); EST Glomerular Filtration Rate 93 mL/min (>60); Est Glom Filt Rate - Afr Amer 112 mL/min (>60); Estimated Creatinine Clearance 81.26 ml/min; Globulin 5.1 g/dL (2.2-4.2); Glucose 99 mg/dL (74-106); Potassium 4.4 mmol/L (3.5-5.1); Protein, Total 7.4 g/dL (6.4-8.2); Sodium Level 135 mmol/L (136-145)
[2021-07-10] MEDS: guaiFENesin/D-Methorphan TAB.SR.12H 1 TABLET PO (08:39)
[2021-07-10] MEDS: dexAMETHasone 4 MG Tablet 6 MG PO (08:39)
[2021-07-10] MEDS: Enoxaparin 30 MG/0.3 ML Syringe SC (08:39)
--- NOTE | 2021-07-10 10:30 | CASEMGMT ---
Social Work Note RAFAEL spoke with Raul, Patient Liaison from [facility], stating pt's family signed Hospice Paperwork and pt will be returning home with Hospice. Raul states that the family has no electric so they are limited on oxygen supplies for pt. Raul states that the only option for oxygen is a Liquid Concentrator. Raul states that they have no availability for transportation either so transportation will need to be arranged for pt. Raul states they are sending a nurse to pt's pharmacy to picker box operator medications and will be headed to pt's house. Raul states she will need to know transportation time once arranged. Pt is currently on Airvo, [facility] cannot accommodate Airvo. RAFAEL placed a call to [facility] and spoke with Benjamin. Benjamin confirms they cannot do Airvo for transportation. Benjamin states that they can do nasal cannula up to 25 liters with a non rebreather mask up to 25 liters. Benjamin states they can also do Bpap and Cpap. RAFAEL spoke with RN, youth officer, pt can transport with Nasal cannula and non rebreather. RAFAEL arranged transportation via cot for 11:00am. RAFAEL updated RN. RAFAEL then received a call from Susana Maldonado at [facility] stating pt's liquid oxygen has been ordered but the company has a 24 hour time around time to get the liquid oxygen delivered. Susana states to not arrange transportation yet and once she has time for oxygen to be delivered she will let this worker know so transportation can be arranged. RAFAEL placed a call to back to [facility] and spoke with Benjamin, asked Benjamin to place transportation in Will Call as this worker has to wait for oxygen to be delivered to pt's home. Transport is in Will Call. RAFAEL updated RN and youth officer. RAFAEL will await call from [facility] regarding when pt's oxygen will be delivered and then transportation will be arranged. Plan: Home with Hospice today Celia Villalpando MEDICAL DELIVERY DRIVER, IRON MINER
--- NOTE | 2021-07-10 10:39 | PCM.DC ---
Discharge Instructions Diet Discharge Diet: No restrictions Activity Discharge Activity: May Not Drive Weight Bearing Status: Weight bearing as tolerated Dressing / Incision Call your doctor if you observe: - (Discharge home with home hospice) Follow Up Care Test Results: Test results from this visit will be discussed in further detail at your follow-up appointment, if applicable. Discharge Plan Admission Admit Date/Time: 07/01/21 16:31 Primary Reason for Your Visit: Rectal COVID-19 pneumonia Attending Provider: Erik Gary Primary Care Provider: Guanakito Hawkins Consulting Providers: Yossi Vargas ; Pat Orzoco ; Bora Alcantara ; Nia Murillo ; Eleonora Bauer ; Violetta Giles ; Katlyn Montalvo MOLD TECHNICIAN Instructions Additional Instructions / Restrictions: Patient is going home under hospice care. Discharge Orders/Prescriptions Prescriptions: New Mucinex DM 30-600 mg Tablet Extended Release 12 Hr 2 tab PO BID Qty: 30 RF: 0 Eliquis 2.5 mg tablet 2.5 mg PO BID Qty: 30 RF: 0 Referrals / Follow Up: Guanakito Hawkins DO [Primary Care Provider] - Disposition Disposition (needs filled in before D/C Order can be placed): Hospice in Home
--- NOTE | 2021-07-10 10:43 | DS.PCM_ITS ---
Providers Date of Admission: 07/01/21 Date of Discharge: 07/10/21 Primary Care Physician: Dr. Guanakito Hawkins, Consultations 07/01/21 18:24 Consult: Infectious Disease Routine Consulting Provider: Yossi Vargas Reason for Consult: covid 19 with severe hypoxia, bariticinib EMERGENT Consult: No Notified: Yes Date Notified: 07/02/21 Time Notified: 05:36 Method of Notification: Answering Service 07/09/21 08:57 Consult: Hospice / Palliative Care Routine Consulting Provider: [facility] Reason for Consult: respiratory decline COVID +, pt declines further respiratory treatment EMERGENT Consult: Yes MD Notified: Yes Date Notified: 07/09/21 Time Notified: 08:57 Method of Notification: Answering Service Reason For Visit: COVID 19 PNEUMONIA Diagnosis Discharge Diagnosis (1) Bilateral pneumonia: Status: Acute Code(s): J18.9 - Pneumonia, unspecified organism Qualifiers: Qualified Code(s): J18.9 - Pneumonia, unspecified organism (2) Suspected COVID-19 virus infection: Status: Acute Code(s): Z20.822 - Contact with and (suspected) exposure to COVID-19 (3) Acute respiratory failure with hypoxia: Status: Acute Code(s): J96.01 - Acute respiratory failure with hypoxia Medications at Discharge Home Medications apixaban [Eliquis] 2.5 mg PO BID #30 tab 07/10/21 dextromethorphan-guaifenesin [Mucinex DM] 2 tab PO BID #30 tab 07/10/21 Hospital Course Summary of Care Provided Minutes Spent on Discharge: 35 Hospital Course: 1. acute hypoxic respiratory failure secondary to bilateral COVID-19 pneumonia with pulmonary fibrosis/COPD: Patient is being a smoker and quit about 10 years ago. On air Vo. Continue incentive spirometry. Negative fluid balance -125 mill per hour. Blood cultures x2 does not show any growth. Silverio antigens are negative. Rapid flu antigen is negative. Patient has been longtime smoker. Chest CTA shows chronic interstitial fibrosis worse in upper lobes with bullous emphysematous giving high suspicion of COPD. Never had PFT. 07/09 and 07/11: Family meeting was done with patient's , son and grandson. They all agreed for hospice consult. They prefer home hospice care. Detailed discussion regarding CT finding, smoking and COVID-19 pneumonia was done and patient's family affirmed understanding. Patient does not want artificial life support intubation, BiPAP. I further told them air Vo would not be option for hospice and they agreed. Hospice nurse came and had family meeting. Roxanol and Ativan ordered as per hospice nurse request. Patient is discharged to home with home hospice care 2. suspected COVID 19: Onset 06/24/2021, quarantine through 07/13. Remdesivir was ordered but patient got 1 dose on 07/02 and thereafter he refused. I talked in detail with patient's son and near the bedside and explained all their questions and concerns. Strep and Legionella antigens negative. No reagent for respiratory panel. Rapid flu negative. Patient family member desires hospice. rapid and PCR negative IgM negative, IgG was 0.28 (essentially negative) unvaccinated 3. VTE prophylaxis: LMWH CODE STATUS changed to [facility] hospice care Discharge medication reconciliation done. Discharge follow-up instructions completed. Discharge process discussed with the patient and all questions were answered to patient's satisfaction. Patient completed 10 days of Decadron. Prescription given for Eliquis for DVT prophylaxis and Mucinex. Total time spent, exact 35 minutes on discharge meds reconciliation, examination, coordination of care with nurses and ancillary staff, review of imaging and blood test and discussion with the patient on follow-up instructions Physical Exam Narrative Seen and examined I again talked to patient's son, patient's and son-in-law present in the room. Hospice nurse discussed with the patient. Agreeable for discharge with home hospice care. General: Alert, Oriented x3, Cooperative HEENT: Atraumatic, PERRLA, EOMI, Normocephalic Oral: No Gingival or Mucosal Lesions/ Ulcerations Neck: Supple, No JVD, Negative Carotid Bruits Lungs: Air entry diminished in bilateral lung bases. No crepitation/rhonchi. Severe hypoxia. Intermittent tachypnea. Cardiovascular: Sinus rhythm, normal S1, Normal S2, No murmurs Abdomen: Bowel Sounds Present, Soft, Non Tender, Non-Distended : No renal angle tenderness. No suprapubic tenderness. Extremities: No edema, Capillary Refill Less than 3 Seconds Skin: No rashes, No breakdown Musculoskeletal: No Tenderness to Palpation of Joints or Extremities Neurological: Cranial nerves II-XII grossly intact, DTR 2+/4 and Symmetrical, Neuro grossly intact Psych/Mental Status: Flat affect. Weight / BMI Weight Weight: 180 lb 15.992 oz Body Mass Index (BMI) 26.7 ABG / Lab / Microbiology Data Result Diagrams: 07/10/21 06:03 07/10/21 06:03 Laboratory: Laboratory Results - last 24 hr 07/10/21 06:03: WBC 15.7 H, RBC 4.58 L, Hgb 12.5 L, Hct 37.6 L, MCV 82.1, MCH 27.3, MCHC 33.2, RDW Std Deviation 43.7, RDW Coeff of Augustina 14.7 H, Plt Count 364, MPV 10.8, Immature Gran % (Auto) 1.800 H, Neut % (Auto) 82.1 H, Lymph % (Auto) 5.5 L, [place] % (Auto) 10.1 H, Eos % (Auto) 0.3, Baso % (Auto) 0.2, Absolute Neuts (auto) 12.9 H, Absolute Lymphs (auto) 0.87, Nucleated RBC % 0, Diff Path Review October07/10/21 06:03: Sodium 135 L, Potassium 4.4, Chloride 106, Carbon Dioxide 20.0 L , Anion Gap 9, BUN 46 H, Creatinine 0.87, Estim Creat Clear Calc 81.26, Est GFR (MDRD) Af Amer 112, Est GFR (MDRD) Non-Af 93, BUN/Creatinine Ratio 52.8 H, Glucose 99, Calcium 9.3, Total Bilirubin 0.80, AST 44 H, ALT 82 H, Alkaline Phosphatase 56, Total Protein 7.4, Albumin 2.3 L, Globulin 5.1 H, Albumin/Globulin Ratio 0.5 L Microbiology: Microbiology 07/01/21 13:31 Blood Culture (Wb) - Anticubital Left Blood Culture - Final No growth in 5 days. 07/06/21 13:29 Mucosa - Nasopharyngeal Influenza Types A,B Direct FA (BALJEET) - Final 07/01/21 12:57 Blood Culture (Wb) - Anticubital Right Blood Culture - Final No growth in 5 days. 07/02/21 06:00 Urine, Random Urine Culture - Final Presumptive E. coli 07/02/21 06:00 Urine, Clean Catch Legionella Antigen - Final 07/02/21 06:00 Urine, Clean Catch Streptococcus pneumoniae Antigen (M - Final 07/01/21 13:00 Nasal Secretion SARS-CoV-2 Antigen (Rapid) - Final D/C Instructions Discharge Diet: No restrictions Weight Bearing Status: Weight bearing as tolerated Call your doctor if you observe: - (Discharge home with home hospice) Meaningful Use Info Meaningful Use Diagnoses (Choose all that apply): None applicable Discharge Plan Admission Admit Date/Time: 07/01/21 16:31 Primary Reason for Your Visit: Rectal COVID-19 pneumonia Attending Provider: Erik Gary Primary Care Provider: Guanakito Hawkins Consulting Providers: Yossi Vargas ; Pat Orozco ; Bora Alcantara ; Nia Murillo ; Eleonora Bauer ; Violetta Giles ; Katlyn Montalvo AUTOMOTIVE SERVICE PROFESSIONAL Instructions Additional Instructions / Restrictions: Patient is going home under hospice care. Discharge Orders/Prescriptions Prescriptions: New Mucinex DM 30-600 mg Tablet Extended Release 12 Hr 2 tab PO BID Qty: 30 RF: 0 Eliquis 2.5 mg tablet 2.5 mg PO BID Qty: 30 RF: 0 Referrals / Follow Up: Guanakito Hawkins DO [Primary Care Provider] - Disposition Disposition (needs filled in before D/C Order can be placed): Hospice in Home Charges/Coding Visit Charges Inpatient E&M: 40271 Disch Hosp
--- NOTE | 2021-07-10 12:49 | NURSING ---
spoke with Tanesha Stoner at hospice, updated on family questions/concerns. phone call patched through into pt room to speak with pt/family.
[2021-07-10 14:01] LABS: Pathologist Review Reviewed
--- NOTE | 2021-07-10 14:39 | CASEMGMT ---
Addendum entered by Mallorie Chi 07/10/21 14:49: Social Work SW set up transport for 3:30pm. RN will let pt and family know. SW called Raul at [facility], message left. SW called the main number as well, reached Raul, let her know pickup time of 3:30pm. No further needs are anticipated at this time. HAVEN Harper Original Note: Social Work SW met w/family, offered support. They asked when the oxygen is getting delivered, SW explained will look into this. They also asked if it's okay that their home be heated with a wood stove and kerosene lamps. SW explained would find out. SW called [facility], Raul states that the oxygen should be delivered shortly. RAFAEL asked about the wood stove and kerosene lamps, is this is going to be an issue, Raul states no. She asked if family got a generator, that way pt can use a concentrator rather than liquid oxygen. SW spoke w/family, let them now the oxygen should be delivered shortly and we are setting up tranpsort, will let them know the time. SW let them know it is okay to heat the home w/a wood stove and kerosene lamps. SW also asked about the generator, they did get a generator. RAFAEL called Raul at [facility] back and left a message letting her know. RAFAEL Yang setting up transport at this time. HAVEN Harper
--- NOTE | 2021-07-10 14:45 | CASEMGMT ---
Social Work Note SW updated that transportation can be arranged as Oxygen will be ready at pt's house. SW placed a call to [facility], transportation is arranged for 3:30pm. RN updated. Plan: Home with Hospice with [facility] transporting pt at 3:30pm Celia Villalpando MSW, MATE FOURTH
[2021-07-10] MEDS: LORazepam 2 MG/ML Bottle 0.5 MG SL (15:07)
[2021-07-10] MEDS: morphine (oral solution) 10MG/0.5ML Syringe 5 MG PO (15:07)
== END 2021-07-10 16:10 | disposition hospice, home (50) | DRG 177 ==
LOC: ED 13:54 → MS3 17:09
PROVIDERS: Internal Medicine Infectious Disease; Admitting Provider Internal Medicine; Emergency Provider Student in an Organized Health Care Education/Training Program; PCP Family Medicine; Visit Provider Internal Medicine
DX: U07.1 COVID-19 (principal); J96.01 Acute respiratory failure with hypoxia; J12.82 Pneumonia due to coronavirus disease 2019; J44.0 Chronic obstructive pulmonary disease with (acute) lower respiratory infection; N17.9 Acute kidney failure, unspecified; J84.10 Pulmonary fibrosis, unspecified; D72.810 Lymphocytopenia; E78.5 Hyperlipidemia, unspecified; Z66 Do not resuscitate; Z87.891 Personal history of nicotine dependence; Z86.73 Personal history of transient ischemic attack (TIA), and cerebral infarction without residual deficits; Z20.822 Contact with and (suspected) exposure to COVID-19
CPT/HCPCS: 36415; 71045; 71275; 80053; 81001; 82550; 83605; 83615; 83880; 84145; 84484; 85025; 85379; 85384; 85610; 85730; 86140; 86769; 87040; 87086; 87088; 87426; 87449; 87635; 87804; 93005; 94003; 94660; 94667; 94668; 94762; 99251; 99285; 99406; J7040; J7050; Q9967; A4216; G0463; J0248; J1940; U0003; U0005

== ENCOUNTER 2021-07-12 15:12 | Emergency (ER) | payer MEDICARE, SELFPAY ==
[2021-07-12 15:13] VITALS: BP 156/97; PULSE 139; RESP 28; TEMP 37.2; O2SAT 87; BMI 25.6
--- NOTE | 2021-07-12 15:36 | EDS_ITS ---
HPI History of Present Illness Chief Complaint: Complaint Narrative Narrative: 66-year-old male with history of TIA, recent hypoxic respiratory failure admitted to the hospital for 10 days with steroids and antiviral treatment. Patient was requiring oxygen at discharge. He opted to be a DNR comfort care only. He is home on oxygen anywhere from 12 to 20 L as prescribed. Patient unable to void over the last 24 hours. Per the home hospice was unable to get a Arambula catheter. They made two attempts. Patient had some bleeding afterwards and since he is on Eliquis for DVT prophylaxis due to being bedbound they sent him into the ER for evaluation. [facility] Medical History COVID TIA (transient ischemic attack) Home Medications apixaban [Eliquis] 2.5 mg PO BID #30 tab 07/10/21 [Rx Last Taken Unknown] dextromethorphan-guaifenesin [Mucinex DM] 2 tab PO BID #30 tab 07/10/21 [Rx Last Taken Unknown] Allergy/AdvReac Type Severity Reaction Status Date / Time No Known Allergies Allergy Verified 07/12/21 15:13 Social History Smoking Status: Former smoker ROS ROS ED Constitutional Constitutional ED: Denies chills or fever(s) Eyes Eyes: Denies blurry vision ENT ENT ED: Denies rhinorrhea or sore throat Cardiovascular Cardiovascular: Denies chest pain Respiratory/Chest Respiratory/Chest: Reports dyspnea; Denies cough Gastrointestinal Gastrointestinal: Reports abdominal pain; Denies constipation, diarrhea, nausea or vomiting Genitourinary Genitourinary ED: Reports dysuria and other Details: Inability to void Musculoskeletal Musculoskeletal: Denies arthralgias or myalgias Integumentary Denies rash Neurologic Neurologic: Denies headache(s) or paresthesias EXAM Physical Exam Const Vital Signs: 07/12/21 15:13 07/12/21 17:36 Temperature 98.9 F Temperature Source Temporal Pulse Rate 139 H 100 Respiratory Rate 28 H 36 H Blood Pressure 156/97 H 111/78 Blood Pressure Mean 116 Pulse Ox 87 91 Oxygen Delivery Method Nasal Cannula Oxygen Flow Rate (L/min) 12 Positive well nourished General Appearance ED: NAD; Negative for pallor HEENT normocephalic and atraumatic Eyes PERRL and EOMs intact bilaterally Resp Resp Narrative: Tachypneic Auscultation: rales bilateral Cardio regular rhythm Rate: tachycardic Narrative: Suprapubic pressure. No blood at the urethral meatus currently. No testicular pain Neuro Sensorium / Orientation: alert Psych mental status grossly normal Skin General Skin Exam: Negative for jaundice or pallor Lesions: No no lesions Rashes: No no rashes MDM MDM MDM Narrative Medical decision making narrative: Patient initially tachycardic and hypertensive. Patient's does confirm that the patient is DNR comfort care only. She also confirms that he has not been able to void for the last 24 hours. He is given 500 cc of IV fluids by EMS and was apparently given 10 mg of sublingual morphine for has prior to arrival. Arambula catheter was placed and urinalysis sent. Patient's blood pressure did improve significantly after the Arambula was placed. Patient's confirms that he can go anywhere from 12 to 20 L of oxygen at home. He is currently requiring 12. Patient had a large volume of yellow urine in the Arambula catheter bag. Patient was given an additional 1 L of IV fluids. Urinalysis negative for infection but does show blood. This is likely due to having instrumentation. Patient is on Eliquis but his urine is now more clear and only slightly yellow. At this point patient will be discharged home with a Arambula catheter in place. He is given follow-up with Dr. Cazares should he need it. Patient is discharged back to home hospice care and transported by EMS. Impression: 1. Urinary retention Lab Data Attestation: I reviewed the patient's lab results. Labs: Laboratory Results - last 24 hr 07/12/21 15:30 Urine Color Yellow Urine Clarity Cloudy Urine pH 5.0 Ur Specific [place] 1.025 Urine Protein 30 H Urine Glucose (UA) Normal Urine Ketones Negative Urine Occult Blood 250 H Urine Nitrite Negative Urine Bilirubin Negative Urine Urobilinogen 1 H Ur Leukocyte Esterase 25 H Urine RBC 50-100 SEEN Urine WBC 0-5 SEEN Ur Squamous Epith Cells 0 SEEN Urine Bacteria 0 SEEN Urine Mucus 0 SEEN Discharge Plan Triage Chief Complaint: Complaint ED Provider: Rigo Nieves Dx/Rx/DC Orders Instructions: ED Urinary Retention, Male Prescriptions: No Action Mucinex DM 30-600 mg Tablet Extended Release 12 Hr 2 tab PO BID Qty: 30 RF: 0 Eliquis 2.5 mg tablet 2.5 mg PO BID Qty: 30 RF: 0 Primary Care Provider: Guanakito Hawkins Referrals: Daniel Alanis MD [STAFF PHYSICIAN] - 3-5 Days Guanakito Hawkins DO [Primary Care Provider] - Disposition Disposition: Home, Self Care Discharge Date/Time: 07/12/21 17:59
[2021-07-12] MEDS: 0.9% Normal Saline 1,000 ML 999 ML IV (15:41)
[2021-07-12 16:22] LABS: Bacteria 0 SEEN /hpf (None Seen); Mucous, Urine 0 SEEN /hpf (<or=2+); Squamous Epithelial Cells - UA 0 SEEN /hpf (0-5)
[2021-07-12 16:36] LABS: Color, Urine Yellow (Yellow); Glucose, Dipstick Normal (Normal); Ketone-Dipstick Negative (Negative); Leukocyte Esterase-Dipstick 25 /ul (Negative); Nitrite-Dipstick Negative (Negative); Occult Blood-Urine 250 /ul (Negative); Protein-Dipstick 30 mg/dl (Negative); Specific Gravity, Urine 1.025 (1.002-1.030); Urine Bilirubin Dipstick Negative (Negative); Urine Clarity Cloudy (Clear); Urine Urobilinogen 1 mg/dl (Normal)
[2021-07-12 17:02] LABS: Red Blood Cells-Urine 50-100 SEEN /hpf (0-5); White Blood Cells 0-5 SEEN /hpf (0-5)
--- NOTE | 2021-07-12 17:21 | NURSING ---
CALLED [facility], ETA IS 2000 OR 2100
[2021-07-12 17:36] VITALS: BP 111/78; PULSE 100; RESP 36; O2SAT 91
== END 2021-07-12 17:59 | disposition home or self-care (01) ==
PROVIDERS: Emergency Provider Student in an Organized Health Care Education/Training Program; PCP Family Medicine; Visit Provider Student in an Organized Health Care Education/Training Program
DX: R33.9 Retention of urine, unspecified (principal); Z87.891 Personal history of nicotine dependence; Z86.73 Personal history of transient ischemic attack (TIA), and cerebral infarction without residual deficits; Z86.16 Personal history of COVID-19; Z66 Do not resuscitate
CPT/HCPCS: 51702; 81001; 96360; 99285; J7030; J7040; A4216